=== PATIENT | female | born 1960 | race Caucasian/White ===

== ENCOUNTER 2021-04-06 08:56 | Outpatient (REF) | payer BC, SELFPAY ==
--- NOTE | ~2021-04-06 | US_ITS ---
EXAMINATION: US EXTRACRANIAL CAROTID DUPLEX, BILATERAL CLINICAL INFORMATION: This is a 60-year-old female with a history of hypertension. Hyperlipidemia. Carotid artery disease. COMPARISON: None TECHNIQUE: Real-time ultrasound and Doppler techniques (integrating B-mode 2-D vascular images, Doppler spectral analysis and color-flow Doppler imaging) were utilized to interrogate the extracranial carotid arteries, the vertebral arteries and proximal subclavian arteries bilaterally. The degree of stenosis is determined by criteria similar to NASCET. FINDINGS: Right Side: 1. There is minimal atherosclerotic plaque seen in the bifurcation/proximal ICA region. 2. The common carotid artery PSV proximally is 114 cm/s and distally 125 cm/s. 3. The proximal internal carotid artery velocities are 70 cm/s systolic and 25 cm/s diastolic. 4. The proximal external carotid artery PSV is 119 cm/s. 5. The vertebral artery shows antegrade flow. 6. The subclavian artery waveforms are normal. Left Side: 1. There is minimal atherosclerotic plaque seen in the bifurcation/proximal ICA region. 2. The common carotid artery PSV proximally is 125 cm/s and distally 108 cm/s. 3. The proximal internal carotid artery velocities are 94 cm/s systolic and 30 cm/s diastolic. 4. The proximal external carotid artery PSV is 119 cm/s. 5. The vertebral artery shows antegrade flow. 6. The subclavian artery waveforms are normal. US/US carotid duplex BI IMPRESSION: 1. RIGHT: Minimal, non-hemodynamically significant stenosis of the proximal right internal carotid artery corresponding to a 0-49% stenosis by velocity criteria. 2. LEFT: Minimal, non-hemodynamically significant stenosis of the proximal left internal carotid artery corresponding to a 0-49% stenosis by velocity criteria.
--- NOTE | ~2021-04-06 | US_ITS ---
EXAMINATION: ULTRASOUND RENAL DOPPLER. CLINICAL INFORMATION: Hypertension. COMPARISON: None TECHNIQUE: Routine grayscale imaging of kidneys followed by retroperitoneal renal Doppler exam was performed. FINDINGS: The right kidney is homogeneous in echo texture with normal cortical thickness. It measures 10.0 cm in length, 4.2 cm in AP and 4.8 cm in transverse dimension. No focal lesion or echogenic calculi seen. No hydronephrosis. The left kidney is homogeneous in echotexture with normal cortical thickness. It measures 10.5 x 5.6 x 5.4 cm. There is no focal lesion or echogenic calculi. There is no hydronephrosis. On renal Doppler: Right kidney: The renal artery velocity proximal segment measures 1 76 cm/second, mid segment measures 1 56 cm/second, distal segment measures 1 1 17 cm/second. Renal aortic ratio measures 1.72. Resistive index is less than 0.80. There is no suspicion for stenosis. The renal artery is patent. Left kidney: The left renal artery velocity proximal segment measures 10 4 cm/second, mid segment measures 98 cm/second, distal segment measures 10 2 cm/second. Renal aortic ratio measures 1.02. Resistive index is less than 0.80. There is no suspicion for stenosis. The renal arteries patent. The abdominal aorta velocity measures 10 2 cm/second. Incidental finding of multiple echogenic gallstones are noted. US/US renal doppler IMPRESSION: Normal renal ultrasound. Normal renal Doppler exam. No evidence of renal artery stenosis.
--- NOTE | ~2021-04-06 | US_ITS ---
EXAMINATION: ULTRASOUND RENAL DOPPLER. CLINICAL INFORMATION: Hypertension. COMPARISON: None TECHNIQUE: Routine grayscale imaging of kidneys followed by retroperitoneal renal Doppler exam was performed. FINDINGS: The right kidney is homogeneous in echo texture with normal cortical thickness. It measures 10.0 cm in length, 4.2 cm in AP and 4.8 cm in transverse dimension. No focal lesion or echogenic calculi seen. No hydronephrosis. The left kidney is homogeneous in echotexture with normal cortical thickness. It measures 10.5 x 5.6 x 5.4 cm. There is no focal lesion or echogenic calculi. There is no hydronephrosis. On renal Doppler: Right kidney: The renal artery velocity proximal segment measures 1 76 cm/second, mid segment measures 1 56 cm/second, distal segment measures 1 1 17 cm/second. Renal aortic ratio measures 1.72. Resistive index is less than 0.80. There is no suspicion for stenosis. The renal artery is patent. Left kidney: The left renal artery velocity proximal segment measures 10 4 cm/second, mid segment measures 98 cm/second, distal segment measures 10 2 cm/second. Renal aortic ratio measures 1.02. Resistive index is less than 0.80. There is no suspicion for stenosis. The renal arteries patent. The abdominal aorta velocity measures 10 2 cm/second. Incidental finding of multiple echogenic gallstones are noted. US/US renal BI IMPRESSION: Normal renal ultrasound. Normal renal Doppler exam. No evidence of renal artery stenosis.
== END 2021-04-06 08:57 | disposition home or self-care (01) ==
LOC: HO.US 08:56
PROVIDERS: PCP Internal Medicine; Visit Provider Internal Medicine
DX: I10 Essential (primary) hypertension (principal)
CPT/HCPCS: 76775; 93880; 93975

== ENCOUNTER 2021-11-15 10:19 | Outpatient (REF) | payer BC, SELFPAY ==
[2021-11-15 11:19] LABS: Influenza A PCR NEGATIVE (Negative); Influenza B PCR NEGATIVE (Negative); Resp Syncy Virus RNA Qual PCR NEGATIVE (Negative); SARS COV2 PCR INHOUSE NEGATIVE (Negative)
== END 2021-11-15 10:20 | disposition home or self-care (01) ==
LOC: HO.LNP 10:19
PROVIDERS: Visit Provider Internal Medicine
DX: J02.9 Acute pharyngitis, unspecified (principal); R51.9 Headache, unspecified; Z20.822 Contact with and (suspected) exposure to COVID-19
CPT/HCPCS: 0241U

== ENCOUNTER 2022-08-31 08:02 | Outpatient (REF) | payer BC, SELFPAY ==
[2022-08-31 08:23] LABS: MANUAL DIFF FLAG NO
[2022-08-31 08:33] LABS: Basophils Percent Auto 0.4 % (0-2); Eosinophils Absolute Auto 0.2 X10*3/uL (0.0-0.4); Eosinophils Percent Auto 1.7 % (0-4); Hematocrit 43.3 % (37.0-47.0); Hemoglobin 14.7 g/dl (12.0-16.0); Imm Gran Abs Auto 0.04 X10*3/uL (0.00-0.03); Imm Gran Pct Auto 0.4 % (0.0-0.4); Lymphocytes Absolute Auto 1.3 X10*3/uL (1.2-4.9); Lymphocytes Percent Auto 12.8 % (20-40); Mean Corpuscular HGB Conc 33.9 g/dl (31.0-35.0); Mean Corpuscular Hemoglobin 32.3 pg (27.0-33.0); Mean Corpuscular Volume 95.2 fL (80.0-98.0); Mean Platelet Volume 9.3 fL (9.4-12.3); Monocytes Absolute Auto 0.9 X10*3/uL (0.1-1.2); Monocytes Percent Auto 8.7 % (2-11); Neutrophils Absolute Auto 7.6 x10*3/uL (2.0-8.3); Platelet Count 300 X10*3/uL (160-400); Red Blood Count 4.55 X10*6/uL (4.20-5.50); Red Cell Distribution Width 11.9 % (11.0-16.0)
[2022-08-31 08:58] LABS: Alanine Aminotransferase 21 U/L (0-31); Albumin Level 4.7 g/dL (3.5-5.0); Alkaline Phosphatase 81 U/L (39-117); Anion Gap 16 (12-20); Aspartate Amino Transferase 20 U/L (5-31); Bilirubin Total 0.9 mg/dL (0.0-1.0); Blood Urea Nitrogen 23 mg/dL (9-16); Calcium 9.9 mg/dL (8.4-10.2); Carbon Dioxide 27 mmol/L (22-29); Chloride 101 mmol/L (96-108); Cholesterol 319 mg/dL; Estimated Glomerular Filt Rate > 60; Glucose Fasting 105 mg/dL (60-99); HDL Cholesterol 51 mg/dL; LDL Cholesterol Calculated 205 mg/dl; Potassium 4.4 mmol/L (3.3-5.1); Sodium 140 mmol/L (135-145); Total Protein 7.3 g/dL (6.5-8.0); Triglycerides 319 mg/dL
== END 2022-08-31 08:03 | disposition home or self-care (01) ==
LOC: HO.LAB 08:02
PROVIDERS: PCP Internal Medicine; Visit Provider Internal Medicine
DX: E78.00 Pure hypercholesterolemia, unspecified (principal); I10 Essential (primary) hypertension
CPT/HCPCS: 36415; 80053; 80061; 85025

== ENCOUNTER 2022-10-24 09:26 | Day surgery (SDC) | payer BC, SELFPAY ==
--- NOTE | 2022-10-23 12:16 | HO.ANESPROP2 ---
Documented by User: Marguerite Avila NP 10/23/22 12:17 HPI - Anesthesia Eval Consult details Narrative: 62yo F for Colonoscopy Subglottic stenosis requiring tracheal steroid injections Q6 weeks. Awaiting fax from [facility] for further review. FOR[facility]LY [facility] Past Medical History Medical History Basal cell carcinoma Cancer of left breast Difficulty breathing Gallstones HTN (hypertension) Injury of trachea Subglottic stenosis Uterine prolapse Vocal cord dysfunction Surgical History Surgical History H/O colonoscopy S/P lumpectomy, left breast Social History Social History Patient Tobacco Use Status: Never used Tobacco Use of substances other than those prescribed or required for medical reasons: No Are you DNR?: No Advance Directives: No Advance Directives Information Provided: Yes Meds Allergies Allergy/AdvReac Type Severity Reaction Status Date / Time No Known Allergies Allergy Mild NOT Unverified 08/11/20 15:38 [No Known Allergies*] APPLICABLE Home Medications Medication Instructions Recorded Confirmed Last Taken Type Vitamin D3 1,500 mg PO DAILY 10/23/22 10/24/22 Unknown History famotidine 20 mg tablet 1 tab PO BID 10/23/22 10/23/22 Unknown History letrozole 2.5 mg tablet 1 tab PO DAILY 10/23/22 10/23/22 Unknown History losartan 50 mg tablet 1 tab PO BID 10/23/22 10/23/22 Unknown History pravastatin 20 mg tablet 1 tab PO DAILY 10/23/22 10/23/22 Unknown History turmeric 1,500 mg DAILY 10/23/22 10/24/22 Unknown History Exam Exam Date and Time: October 23, 2022 1216 Pertinent Lab Results Pertinent Lab Results: Laboratory Tests 08/31/22 08/31/22 08:22 08:22 WBC 10.0 Hgb 14.7 Hct 43.3 Plt Count 300 Sodium 140 Potassium 4.4 Chloride 101 Carbon Dioxide 27 BUN 23 H Creatinine 0.70 Assessment and Plan Assessment Anesthesia Assessment: Chart Reviewed Documented by User: Miller Cormier MD 10/24/22 16:06 HPI - Anesthesia Eval Consult details Narrative: 62yo F for Colonoscopy Subglottic stenosis requiring tracheal steroid injections Q6 weeks. . [facility] Past Medical History Medical History Basal cell carcinoma Cancer of left breast Difficulty breathing Gallstones HTN (hypertension) Injury of trachea Subglottic stenosis Uterine prolapse Vocal cord dysfunction Functional capacity: independent ambulation Family History Family history of problems with anesthesia: No Surgical History Surgical History H/O colonoscopy S/P lumpectomy, left breast History of Problems with Anesthesia: No Social History Social History Patient Tobacco Use Status: Never used Tobacco Use of substances other than those prescribed or required for medical reasons: No Are you DNR?: No Advance Directives: No Advance Directives Information Provided: Yes Meds Allergies Allergy/AdvReac Type Severity Reaction Status Date / Time No Known Allergies Allergy Mild NOT Unverified 08/11/20 15:38 [No Known Allergies*] APPLICABLE Home Medications Medication Instructions Recorded Confirmed Last Taken Type Vitamin D3 1,500 mg PO DAILY 10/23/22 10/24/22 Unknown History famotidine 20 mg tablet 1 tab PO BID 10/23/22 10/23/22 Unknown History letrozole 2.5 mg tablet 1 tab PO DAILY 10/23/22 10/23/22 Unknown History losartan 50 mg tablet 1 tab PO BID 10/23/22 10/23/22 Unknown History pravastatin 20 mg tablet 1 tab PO DAILY 10/23/22 10/23/22 Unknown History turmeric 1,500 mg DAILY 10/23/22 10/24/22 Unknown History Exam Airway Mallampati Class: II TM Dist: >3cm Neck ROM: Full Loose/Missing/Broken Teeth: Yes (Fillings) Heart: S1,S2 Lungs: b/l breath sounds Assessment and Plan Assessment Anesthesia Assessment: Anesthesia Plan Discussed Final Anesthetic Review Family History of Problems with Anesthesia: No History of Problems with Anesthesia: No NPO: Yes ASA Class: III Final Preanesthetic Review: Meds/Allgs Chart Reviewed, Consent Obtained/Reviewed and Anes Risks/Benef Reviewed Patient Risk: Intermediate Procedure Risk: Intermediate Anesthetic Plan Anesthetic Plan: MAC: Disposition: Standard PACU
[2022-10-24 09:39] VITALS: BP 148/70; PULSE 87; RESP 18; TEMP 36.6; O2SAT 98; BMI 22.4
[2022-10-24] MEDS: Lactated Ringers 1,000 ML 100 ML IVCONT (10:11)
[2022-10-24 11:40] VITALS: BP 145/77; PULSE 80; RESP 16; TEMP 36.3; O2SAT 96
--- NOTE | 2022-10-24 11:45 | P.BOP_ITS ---
Brief Operative Note Date of Service: 10/24/22 Pre-op diagnosis: Screening Post-op diagnosis: other (Colon polyp) Procedure: Colonoscopy to cecum with bx/removal of polyp Surgeon: Mynor Alcaraz Anesthesia: MAC Was an Electrical Wiring Lineman used for this Procedure?: No Estimated blood loss (mL): 2.0 Pathology: other (A. Transverse colon polyp) Condition: stable Disposition: PACU
[2022-10-24 11:55] VITALS: BP 151/64; PULSE 75; RESP 16; TEMP 36.2; O2SAT 98
[2022-10-24 12:10] VITALS: BP 142/53; PULSE 69; RESP 16; TEMP 36.1; O2SAT 96
--- NOTE | 2022-10-25 00:13 | OP_ITS ---
SURGEON: Mynor Alcaraz MD INDICATIONS: The patient presents for evaluation of colorectal cancer screening and family history of colon cancer. Full consent was obtained from her for this, including risks of bleeding and perforation. PREOPERATIVE DIAGNOSIS: POSTOPERATIVE DIAGNOSIS: PROCEDURE PERFORMED: Colonoscopy to cecum with biopsy and removal of polyp. ESTIMATED BLOOD LOSS: COMPLICATIONS: ANESTHESIA: Monitored anesthesia care. ASSISTANTS: SPECIMENS: PREOPERATIVE DIAGNOSES: Colorectal cancer screening and family history of colon Cancer. POSTOPERATIVE DIAGNOSES: Colorectal cancer screening and family history of colon Cancer, small colon polyp, diverticulosis and internal hemorrhoids. DESCRIPTION OF PROCEDURE: The patient was placed in the left lateral decubitus position. The digital rectal exam revealed no abnormalities. The Olympus video pediatric colonoscope was entered into the rectum and advanced easily to the cecum. Once in the cecum, I did identify normal-appearing cecal pouch with appendiceal orifice and a normal-appearing ileocecal valve. The entire cecum and ileocecal valve appeared normal. The scope was slowly withdrawn assessing all mucosal surfaces carefully. Preparation was excellent. In the transverse colon was a flat approximately 3 or 4 mm polyp, which was biopsied and completely removed with cold biopsy forceps. I did not visualize any other polyps, colitis, nor angiodysplasia. There was a moderate amount of sigmoid diverticulosis. In the rectum, the scope was retroflexed visualizing internal hemorrhoids, but no other pathology. The rectal mucosa appeared normal. The scope was straightened and withdrawn from the patient. She tolerated the procedure well and was returned to the recovery area in stable condition. IMPRESSION: 1. Small colon polyp, status post biopsy and removal. 2. Diverticulosis. 3. Internal hemorrhoids. PLAN: The results of the pathology will be checked. Even if this is only hyperplastic, I would recommend a followup colonoscopy in 5 years due to her family history of colon cancer. She will otherwise see me on a p.r.n. basis. MD SANDY Rivero/CRIS / [id number]
== END 2022-10-24 12:58 | disposition home or self-care (01) ==
PROVIDERS: PCP Internal Medicine; Visit Provider Internal Medicine
PROC: 0DJD8ZZ Inspection of Lower Intestinal Tract, Via Natural or Artificial Opening Endoscopic (ICD-10-PCS; CPT 45378; principal; 2022-10-24 10:30)
DX: Z12.11 Encounter for screening for malignant neoplasm of colon (principal); Z80.0 Family history of malignant neoplasm of digestive organs; D12.3 Benign neoplasm of transverse colon; K57.30 Diverticulosis of large intestine without perforation or abscess without bleeding; K64.8 Other hemorrhoids; K80.20 Calculus of gallbladder without cholecystitis without obstruction; J38.6 Stenosis of larynx; I10 Essential (primary) hypertension; C50.912 Malignant neoplasm of unspecified site of left female breast; Z79.811 Long term (current) use of aromatase inhibitors; Z79.899 Other long term (current) drug therapy; Z85.828 Personal history of other malignant neoplasm of skin
CPT/HCPCS: 45380; 88305

== ENCOUNTER 2023-01-10 10:43 | Outpatient (REF) | payer BC, SELFPAY ==
[2023-01-10 13:21] LABS: MANUAL DIFF FLAG NO
[2023-01-10 13:36] LABS: Basophils Percent Auto 0.4 % (0-2); Eosinophils Absolute Auto 0.1 X10*3/uL (0.0-0.4); Eosinophils Percent Auto 1.5 % (0-4); Hematocrit 44.3 % (37.0-47.0); Hemoglobin 14.7 g/dl (12.0-16.0); Imm Gran Abs Auto 0.02 X10*3/uL (0.00-0.03); Imm Gran Pct Auto 0.3 % (0.0-0.4); Lymphocytes Absolute Auto 1.2 X10*3/uL (1.2-4.9); Lymphocytes Percent Auto 18.4 % (20-40); Mean Corpuscular HGB Conc 33.2 g/dl (31.0-35.0); Mean Corpuscular Hemoglobin 32.3 pg (27.0-33.0); Mean Corpuscular Volume 97.4 fL (80.0-98.0); Mean Platelet Volume 10.1 fL (9.4-12.3); Monocytes Absolute Auto 0.5 X10*3/uL (0.1-1.2); Monocytes Percent Auto 7.5 % (2-11); Neutrophils Absolute Auto 4.8 x10*3/uL (2.0-8.3); Neutrophils Percent Auto 71.9 % (45-73); Platelet Count 285 X10*3/uL (160-400); Red Blood Count 4.55 X10*6/uL (4.20-5.50); White Blood Count 6.7 X10*3/uL (4.8-10.8)
[2023-01-10 13:47] LABS: Alanine Aminotransferase 23 U/L (0-31); Albumin Level 4.5 g/dL (3.5-5.0); Alkaline Phosphatase 75 U/L (39-117); Anion Gap 15 (12-20); Aspartate Amino Transferase 21 U/L (5-31); Blood Urea Nitrogen 17 mg/dL (9-16); Calcium 9.5 mg/dL (8.4-10.2); Carbon Dioxide 27 mmol/L (22-29); Chloride 102 mmol/L (96-108); Cholesterol 265 mg/dL; Estimated Glomerular Filt Rate > 60; Glucose Random 103 mg/dL (60-115); HDL Cholesterol 51 mg/dL; LDL Cholesterol Calculated 160 mg/dl; Potassium 4.3 mmol/L (3.3-5.1); Sodium 140 mmol/L (135-145); Total Protein 6.8 g/dL (6.5-8.0); Triglycerides 274 mg/dL
== END 2023-01-10 10:44 | disposition home or self-care (01) ==
LOC: HO.10HDL 10:43
PROVIDERS: Visit Provider Internal Medicine
DX: E78.00 Pure hypercholesterolemia, unspecified (principal); I10 Essential (primary) hypertension
CPT/HCPCS: 36415; 80053; 80061; 85025

== ENCOUNTER 2023-03-18 13:09 | Outpatient (REF) | payer BC, SELFPAY ==
--- NOTE | ~2023-03-18 | CT_ITS ---
EXAMINATION: CT ABDOMEN AND PELVIS WITHOUT AND WITH CONTRAST CLINICAL INFORMATION: Gross hematuria. Hypertension. COMPARISON: None available. TECHNIQUE: Noncontrast CT of the abdomen and pelvis is performed followed by split bolus contrast-enhanced images using 85 mL Omnipaque 350 contrast.? Postcontrast imaging is performed during the combined nephrogram and excretion phase. Sagittal and coronal reformatted images were obtained on the technologist's workstation for both the precontrast and postcontrast phases. This CT examination was performed using dose optimization techniques as appropriate, variously including the following: *Automated exposure control *Adjustment of mA and/or kV according to patient size (this includes techniques or standardized protocols for targeted exams where dose is matched to indication/reason for exam; i.e. extremities or head) *Use of iterative reconstruction technique DLP: 570 mGy-cm. FINDINGS: LUNG BASES: The lung bases are clear. The heart size is normal. LIVER, GALLBLADDER, AND BILIARY TREE: The liver is normal in size, shape, and attenuation. No focal hepatic lesion or biliary ductal dilatation is present. The gallbladder is unremarkable with no evidence of radiopaque gallstones, gallbladder wall thickening, or obvious pericholecystic inflammatory changes. PANCREAS: Unremarkable. SPLEEN: Unremarkable. ADRENAL GLANDS: Unremarkable. KIDNEYS AND URETERS: There are no radiopaque renal calculi or hydronephrosis. There is a tumor radiopaque calculi in the right distal ureter suspected image 62/3. Postcontrast, there are bilateral symmetrical nephrograms with normal cortical thickness. No enhancing renal mass, cyst seen. There is good opacification of the bilateral kidney pelvises and ureters without intraluminal filling defect or obstruction. Right kidney measures 10.3 cm in length and left kidney measures 8.7 cm in length. There is a punctate radiopaque calculi or phleboliths in the right distal ureteral/pelvis No additional radiopaque ureteral calculi seen. No perinephric stranding seen. BLADDER: The bladder is opacified with excreted urinary contrast and appears unremarkable. GASTROINTESTINAL TRACT: There is scattered stool and gas seen throughout the colon without distention. The small bowel loops are normal caliber. Appendix is not visualized certainty. No free air or free fluid seen. ABDOMINAL WALL: No significant hernia is appreciated. LYMPH NODES: Normal. VASCULAR: There is arthroscopic calcification of abdominal aorta without aneurysmal dilatation. No lytic or sclerotic process seen. PELVIC VISCERA: No pelvic mass of free fluid. OSSEUS STRUCTURES: Unremarkable. CT/CT urogram IMPRESSION: 1. No radiopaque urolith or hydroureteronephrosis seen. There is suspicious punctate radiopaque calculi/phlebolith in the right distal ureter/pelvis. No hydroureter. 2. Mild constipation. 3. No aggressive lytic or sclerotic process seen.
[2023-03-18] MEDS: iohexoL 350 MG/ML 100 ML INFUS..BTL IV (14:46)
[2023-03-18 15:08] LABS: Appearance Urine Clear; Color Urine Yellow; Glucose Urine UA Negative (Negative); Leukocyte Esterase Urine Negative (Negative); Nitrite Urine Negative (Negative); PH 5.5 (5.0-9.0); Specific Gravity - Urine >= 1.030 (1.005-1.025); Urine Blood Negative (Negative); Urine Ketones Negative (Negative); Urine Protein Negative (Neg-Trace)
[2023-03-18 15:17] LABS: Bacteria Urine None Seen (None Seen); Hyaline Casts Urine 0-2 /LPF (0-2); RBC Urine 0-2 /HPF (0-2); Squamous Epithelial Cell Urine 0-2 /HPF (0-2); WBC Urine 0-5 /HPF (0-5)
[2023-03-20 16:28] LABS: Complement C3 191 mg/dL (83-193)
[2023-03-22 12:53] LABS: Prot Elec - Albumin 4.5 g/dL (3.8-4.8); Prot Elec - Alpha2 0.6 g/dL (0.5-0.9); Prot Elec - Beta 1 0.4 g/dL (0.4-0.6); Prot Elec - Beta 2 0.3 g/dL (0.2-0.5); Prot Elec - Gamma 0.7 g/dL (0.8-1.7); Prot Elec - Total Protein 7.3 g/dL (6.1-8.1)
== END 2023-03-18 13:10 | disposition home or self-care (01) ==
LOC: HO.CT 13:09
PROVIDERS: PCP Internal Medicine; Visit Provider Internal Medicine Nephrology
DX: I10 Essential (primary) hypertension (principal); R31.0 Gross hematuria
CPT/HCPCS: 36415; 74178; 81001; 84165; 86160; 87086; Q9967

== ENCOUNTER 2023-08-07 10:57 | Outpatient (REF) | payer OTHER, SELFPAY ==
[2023-08-07 13:18] LABS: MANUAL DIFF FLAG NO
[2023-08-07 13:23] LABS: Basophils Absolute Auto 0.1 X10*3/uL (0.0-0.2); Basophils Percent Auto 0.7 % (0-2); Eosinophils Absolute Auto 0.1 X10*3/uL (0.0-0.4); Eosinophils Percent Auto 1.6 % (0-4); Hematocrit 44.5 % (37.0-47.0); Hemoglobin 14.7 g/dl (12.0-16.0); Imm Gran Abs Auto 0.04 X10*3/uL (0.00-0.03); Imm Gran Pct Auto 0.5 % (0.0-0.4); Lymphocytes Absolute Auto 1.5 X10*3/uL (1.2-4.9); Lymphocytes Percent Auto 20.1 % (20-40); Mean Corpuscular Volume 96.9 fL (80.0-98.0); Mean Platelet Volume 10.2 fL (9.4-12.3); Monocytes Absolute Auto 0.6 X10*3/uL (0.1-1.2); Monocytes Percent Auto 7.3 % (2-11); Neutrophils Absolute Auto 5.2 x10*3/uL (2.0-8.3); Neutrophils Percent Auto 69.8 % (45-73); Platelet Count 300 X10*3/uL (160-400); Red Blood Count 4.59 X10*6/uL (4.20-5.50); Red Cell Distribution Width 11.6 % (11.0-16.0); White Blood Count 7.5 X10*3/uL (4.8-10.8)
[2023-08-07 13:46] LABS: Alanine Aminotransferase 20 U/L (0-31); Albumin Level 4.7 g/dL (3.5-5.0); Alkaline Phosphatase 78 U/L (39-117); Anion Gap 14 (12-20); Aspartate Amino Transferase 21 U/L (5-31); Bilirubin Total 0.4 mg/dL (0.0-1.0); Blood Urea Nitrogen 21 mg/dL (9-16); Calcium 10.3 mg/dL (8.4-10.2); Carbon Dioxide 27 mmol/L (22-29); Chloride 103 mmol/L (96-108); Cholesterol 250 mg/dL (<200); Estimated Glomerular Filt Rate > 60; Glucose Random 95 mg/dL (60-115); HDL Cholesterol 51 mg/dL (>40); LDL Cholesterol Calculated 143 mg/dL (<100); Potassium 4.3 mmol/L (3.3-5.1); Sodium 140 mmol/L (135-145); Total Protein 7.7 g/dL (6.5-8.0); Triglycerides 281 mg/dL (<150)
== END 2023-08-07 10:58 | disposition home or self-care (01) ==
LOC: HO.10HDL 10:57
PROVIDERS: Visit Provider Internal Medicine
DX: Z00.00 Encounter for general adult medical examination without abnormal findings (principal); I10 Essential (primary) hypertension; E78.00 Pure hypercholesterolemia, unspecified
CPT/HCPCS: 36415; 80053; 80061; 85025

== ENCOUNTER 2024-02-26 08:20 | Outpatient (REF) | payer OTHER, SELFPAY ==
[2024-02-26 10:36] LABS: MANUAL DIFF FLAG NO
[2024-02-26 10:42] LABS: Basophils Percent Auto 0.6 % (0-2); Eosinophils Absolute Auto 0.1 X10*3/uL (0.0-0.4); Eosinophils Percent Auto 1.2 % (0-4); Hematocrit 42.9 % (37.0-47.0); Hemoglobin 14.6 g/dl (12.0-16.0); Imm Gran Abs Auto 0.02 X10*3/uL (0.00-0.03); Imm Gran Pct Auto 0.3 % (0.0-0.4); Lymphocytes Absolute Auto 1.4 X10*3/uL (1.2-4.9); Mean Corpuscular Hemoglobin 32.7 pg (27.0-33.0); Mean Platelet Volume 9.7 fL (9.4-12.3); Monocytes Absolute Auto 0.5 X10*3/uL (0.1-1.2); Monocytes Percent Auto 6.9 % (2-11); Neutrophils Absolute Auto 4.7 x10*3/uL (2.0-8.3); Platelet Count 309 X10*3/uL (160-400); Red Blood Count 4.47 X10*6/uL (4.20-5.50); Red Cell Distribution Width 11.9 % (11.0-16.0); White Blood Count 6.7 X10*3/uL (4.8-10.8)
[2024-02-26 11:42] LABS: Alanine Aminotransferase 24 U/L (0-31); Albumin Level 4.2 g/dL (3.5-5.0); Alkaline Phosphatase 83 U/L (39-117); Anion Gap 10 (12-20); Aspartate Amino Transferase 20 U/L (5-31); Bilirubin Total 0.5 mg/dL (0.0-1.0); Blood Urea Nitrogen 18 mg/dL (9-16); Calcium 9.7 mg/dL (8.4-10.2); Carbon Dioxide 29 mmol/L (22-29); Chloride 105 mmol/L (96-108); Cholesterol 219 mg/dL (<200); Estimated Glomerular Filt Rate > 60; Glucose Fasting 113 mg/dL (60-99); HDL Cholesterol 46 mg/dL (>40); LDL Cholesterol Calculated 122 mg/dL (<100); Potassium 4.3 mmol/L (3.3-5.1); Sodium 140 mmol/L (135-145); Triglycerides 256 mg/dL (<150); Vitamin D 25-OH Total 63.5 ng/mL (>30)
== END 2024-02-26 08:21 | disposition home or self-care (01) ==
LOC: HO.10HDL 08:20
PROVIDERS: Visit Provider Internal Medicine
DX: I10 Essential (primary) hypertension (principal); E78.5 Hyperlipidemia, unspecified
CPT/HCPCS: 36415; 80053; 80061; 82306; 85025

== ENCOUNTER 2024-03-20 07:56 | Outpatient (REF) | payer OTHER, SELFPAY ==
[2024-03-20 10:57] LABS: MANUAL DIFF FLAG NO
[2024-03-20 11:02] LABS: Basophils Percent Auto 0.5 % (0-2); Eosinophils Absolute Auto 0.1 X10*3/uL (0.0-0.4); Eosinophils Percent Auto 1.4 % (0-4); Hemoglobin 14.7 g/dl (12.0-16.0); Imm Gran Abs Auto 0.02 X10*3/uL (0.00-0.03); Imm Gran Pct Auto 0.2 % (0.0-0.4); Lymphocytes Absolute Auto 1.5 X10*3/uL (1.2-4.9); Lymphocytes Percent Auto 17.6 % (20-40); Mean Corpuscular HGB Conc 34.2 g/dl (31.0-35.0); Mean Corpuscular Hemoglobin 32.2 pg (27.0-33.0); Mean Corpuscular Volume 94.1 fL (80.0-98.0); Mean Platelet Volume 9.7 fL (9.4-12.3); Monocytes Absolute Auto 0.5 X10*3/uL (0.1-1.2); Monocytes Percent Auto 6.1 % (2-11); Neutrophils Absolute Auto 6.4 x10*3/uL (2.0-8.3); Neutrophils Percent Auto 74.2 % (45-73); Platelet Count 311 X10*3/uL (160-400); Red Blood Count 4.57 X10*6/uL (4.20-5.50); Red Cell Distribution Width 11.9 % (11.0-16.0); White Blood Count 8.6 X10*3/uL (4.8-10.8)
[2024-03-20 11:21] LABS: Alanine Aminotransferase 30 U/L (0-31); Albumin Level 4.3 g/dL (3.5-5.0); Alkaline Phosphatase 90 U/L (39-117); Anion Gap 9 (12-20); Aspartate Amino Transferase 26 U/L (5-31); Bilirubin Direct 0.1 mg/dL (0.0-0.5); Bilirubin Total 0.4 mg/dL (0.0-1.0); Blood Urea Nitrogen 18 mg/dL (9-16); C Reactive Protein 0.52 mg/dL (< or = 0.50); Calcium 9.5 mg/dL (8.4-10.2); Carbon Dioxide 29 mmol/L (22-29); Chloride 107 mmol/L (96-108); Estimated Glomerular Filt Rate > 60; Glucose Random 110 mg/dL (60-115); Potassium 3.8 mmol/L (3.3-5.1); Sodium 141 mmol/L (135-145); Total Protein 7.1 g/dL (6.5-8.0)
[2024-03-20 11:42] LABS: Erythrocyte Sedimentation Rate 5 MM/HR (0-20)
== END 2024-03-20 07:57 | disposition home or self-care (01) ==
LOC: HO.10HDL 07:56
PROVIDERS: Visit Provider Internal Medicine
DX: K62.5 Hemorrhage of anus and rectum (principal)
CPT/HCPCS: 36415; 80048; 80076; 85025; 85652; 86140

== ENCOUNTER 2024-10-05 08:53 | Outpatient (REF) | payer OTHER, SELFPAY ==
[2024-10-05 10:46] LABS: MANUAL DIFF FLAG NO
[2024-10-05 10:53] LABS: Basophils Percent Auto 0.6 % (0-2); Eosinophils Absolute Auto 0.1 X10*3/uL (0.0-0.4); Eosinophils Percent Auto 1.5 % (0-4); Hematocrit 43.5 % (37.0-47.0); Hemoglobin 14.8 g/dl (12.0-16.0); Imm Gran Abs Auto 0.03 X10*3/uL (0.00-0.03); Imm Gran Pct Auto 0.4 % (0.0-0.4); Lymphocytes Absolute Auto 1.2 X10*3/uL (1.2-4.9); Mean Corpuscular Hemoglobin 32.6 pg (27.0-33.0); Mean Corpuscular Volume 95.8 fL (80.0-98.0); Mean Platelet Volume 9.5 fL (9.4-12.3); Monocytes Absolute Auto 0.4 X10*3/uL (0.1-1.2); Monocytes Percent Auto 6.5 % (2-11); Platelet Count 279 X10*3/uL (160-400); Red Blood Count 4.54 X10*6/uL (4.20-5.50); Red Cell Distribution Width 12.3 % (11.0-16.0); White Blood Count 6.8 X10*3/uL (4.8-10.8)
[2024-10-05 11:13] LABS: Alanine Aminotransferase 24 U/L (0-31); Albumin Level 4.3 g/dL (3.5-5.0); Alkaline Phosphatase 76 U/L (39-117); Anion Gap 10 (12-20); Aspartate Amino Transferase 21 U/L (5-31); Bilirubin Total 0.4 mg/dL (0.0-1.0); Blood Urea Nitrogen 29 mg/dL (9-16); Calcium 9.7 mg/dL (8.4-10.2); Carbon Dioxide 27 mmol/L (22-29); Chloride 105 mmol/L (96-108); Cholesterol 244 mg/dL (<200); Estimated Glomerular Filt Rate > 60; Glucose Fasting 108 mg/dL (60-99); HDL Cholesterol 53 mg/dL (>40); LDL Cholesterol Calculated 125 mg/dL (<100); Sodium 138 mmol/L (135-145); Total Protein 7.1 g/dL (6.5-8.0); Triglycerides 330 mg/dL (<150)
== END 2024-10-05 08:54 | disposition home or self-care (01) ==
LOC: HO.10HDL 08:53
PROVIDERS: Visit Provider Internal Medicine
DX: I10 Essential (primary) hypertension (principal); E78.00 Pure hypercholesterolemia, unspecified
CPT/HCPCS: 36415; 80053; 80061; 82306; 85025

== ENCOUNTER 2025-01-21 10:12 | Outpatient (AMB) | payer OTHER, SELFPAY ==
--- NOTE | 2025-01-21 10:14 | A.OFFVIS_ITS ---
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 Patient herself does not have any known cardiac issues. No history of any coronary disease or myocardial infarction or cardiomyopathy or in fact any other cardiac concerns. She has had hypertension since her 40s. She is on medication for the same but still not well controlled. She also has hypertension on statins. Apparently, she has had issues with some statins like atorvastatin where she had memory issues but currently taking pravastatin. However, still has high lipids. Within limits of her activity, she does not have any cardiac complaints like angina. The extremely active with no limitations. History of breast cancer and she has had lumpectomy, radiation. 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 That was causing her some shortness of breath but now it is resolved. 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 Basal cell carcinoma Gallstones Uterine prolapse Subglottic stenosis Vocal cord dysfunction HTN (hypertension) Surgical History S/P lumpectomy, left breast H/O colonoscopy Family History (Updated 01/21/25 @ 10:22 by Marika William CMA) Mother CHF (congestive heart failure) HTN (hypertension) Father History of cardiac cath HTN (hypertension) Hypercholesteremia Social History (Updated 01/21/25 @ 10:23 by Marika William CMA) Alcohol intake: current Alcohol intake frequency: holidays/special occasions only Patient Tobacco Use Status: Never used Tobacco Review of Systems Const Denies chills, Denies daytime sleepiness, Denies fatigue, Denies fever(s), Denies poor appetite, Denies snoring, Denies stops breathing during sleep, Denies weakness, Denies weight gain and Denies weight loss Eyes Denies loss of vision ENT Denies dizziness and Denies hearing loss Card Denies chest pain, Denies irregular heart rhythm, Denies claudication, Denies leg edema, Denies lightheadedness, Denies palpitations, Denies dyspnea on exertion and Denies orthopnea Resp Denies cough, Denies excessive phlegm production, Denies dyspnea on exertion, Denies snoring and Denies wheezing GI Denies abdominal pain, Denies hematochezia, Denies change in bowel habits, Denies nausea and Denies vomiting Denies urinary frequency and Denies dysuria Musc Denies arthralgias, Denies muscle weakness, Denies numbness and Denies other Skin/Breast Denies nail changes and Denies rash Neuro Denies Abnormal speech present, Denies dizziness, Denies loss of vision, Denies memory loss, Denies numbness and Denies weakness Psych Denies depression and Denies memory loss Endo Denies fatigue and Denies palpitations Chan/Lymph Denies easy bruising Aller/Immun Denies wheezing Physical Exam Vital Signs: Last Vital Signs Pulse 72 01/21/25 10:15 BP 172/88 H 01/21/25 10:15 BMI result Body Mass Index 23.8 Const General: comfortable and no acute distress Orientation/consciousness: patient oriented x3 HEENT Other: Unremarkable Head: Yes normal to inspection Neck Neck: Yes normal visual inspection Chest Chest palpation & inspection: normal inspection of the chest Resp Auscultation: clear to auscultation bilaterally Cardio Palpation: normal PMI Heart sounds: S1 normal heart sound present, S2 normal heart sound present, no gallops, no murmurs and no rubs GI Palpation (GI): Soft to palpation Back/Spine/Pelvis Other: unremarkable Skin General skin exam: no rashes or lesions noted Neuro General: patient oriented x3 Speech: No Abnormal speech present Extrem General: Yes normal to inspection Psych Mental Status: mental status grossly normal Office Procedures EKG Details: EKG with underlying sinus rhythm at 72/Min; no significant ST-T changes; [place] [id number], Complete Assessment & Plan Assessment & Plan (1) Atherosclerotic cardiovascular disease: Code(s): I25.10 - Atherosclerotic heart disease of [place] coronary artery without angina pectoris Category: Medical (2) HTN (hypertension): Code(s): I10 - Essential (primary) hypertension Category: Medical (3) Mixed hyperlipidemia: Code(s): E78.2 - Mixed hyperlipidemia Category: Medical Plan Calcium scoring CT scan-total calcium score 17. LAD 11; RCA 6. Findings discussed with patient. She mainly needs risk factor modification. Blood pressure is not well controlled. I checked it myself and still high. We can add amlodipine to arranging. She can let us know the readings through patient portal and we discussed that today. She admits to eating excessive salt and needs to avoid that. Again discussed. Check echocardiogram to assess cardiac function/left ventricular hypertrophy/ diastolic dysfunction. Lipids are high with triglycerides of 330 and LDL of 125. Apparently intolerant of some statins like atorvastatin. Cause for memory issues. Try Crestor. Stop pravastatin. Recheck lipids in a couple of months. Follow-up in 3 months. In the interim, call with any concerns. Orders: Orders CA echo transthoracic complete Today I10 - Essential (primary) hypertension, I25.10 - Atherosclerotic heart disease of [place] coronary artery without angina pectoris Liver Panel 3 Months I25.10 - Atherosclerotic heart disease of [place] coronary artery without angina pectoris Lipid Panel 3 Months E78.5 - Hyperlipidemia, unspecified, I25.10 - Atherosclerotic heart disease of [place] coronary artery without angina pectoris Medications: New rosuvastatin (Crestor) 20 mg PO DAILY 90 tabs 1RF I25.10 - Atherosclerotic heart disease of [place] coronary artery without angina pectoris amlodipine 5 mg PO DAILY 90 tabs 1RF I10 - Essential (primary) hypertension Coding Level of Care Code New Pt Level 4 (83889) Diagnoses Atherosclerotic cardiovascular disease I25.10 HTN (hypertension) I10 Mixed hyperlipidemia E78.2 CPT Codes EKG - CPT: 45982-[id number], Complete ([id number])
[2025-01-21 10:15] VITALS: BP 172/88; PULSE 72; BMI 23.8
--- OUTSIDE RECORDS SUMMARY | 2025-01-21 11:49 | XMS_ITS | Clinical Summary ---
Author Organization [facility] Address [address] [place] [address] Phone Care Team Providers Care Nuclear Fuel Enrichment Technician Name Role Phone Sidney Carlton MD Primary Care Provider [phone] Allergies No known active allergies Medications biotin 1000 MCG tablet Take 1,000 mcg by mouth in the morning and 1,000 mcg at noon and 1,000 mcg in the evening. Active cholecalciferol (VITAMIN D-3) 25 MCG (1000 UT) tablet Take 2,000 Units by mouth in the morning. Active letrozole (FEMARA) 2.5 MG chemo tablet Take 2.5 mg by mouth in the morning. 10/07/2019 Active losartan (COZAAR) 50 MG tablet Take 50 mg by mouth in the morning and 50 mg in the evening. 10/20/2021 Active niacinamide 500 MG tablet Take 500 mg by mouth in the morning and 500 mg in the evening. 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 03/05/2023 Diverticulosis of sigmoid colon 03/05/2023 03/05/2023 Family history of cancer of colon 03/05/2023 03/05/2023 Herniated urinary bladder 03/05/2023 Herniation of rectum into vagina 03/05/2023 03/05/2023 Mixed urinary incontinence 03/05/2023 0 03/05/2023 Screening for malignant neoplasm of rectum 03/05/2023 03/05/2023 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 03/05/20 Tumor finding 03/05/2023 03/05/2023 Gastro-esophageal reflux dis ease without esophagitis 06/02/2020 03/05/2023 Edema of larynx 06/02/2020 03/05/2023 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 Bustamante 2014; on Xanax BID with some relief; stridor/wheezing/dry cough with deep breathing/prolonged talking/exercise; unchanged symptoms Immunizations Name Administration Dates Next Due Influenza, Quadrivalent, Preservative Free 09/06 Moderna SARS-COV-2 03/09/2021 Family History Medical History Relation Comments Diabetes Brother Hypertension Father Heart disease Mother Hypertension Mother Relation Status Comments Brother Father Alive Mother Social History Tobacco Use Types Packs/Day Years Used Date Smoking Tobacco: Never Smokeless Tobacco: Never Tobacco Cessation:Counseling Given: Not Answered Alcohol Use Standard Drinks/Week Comments Yes 0 (1 standard drink = 0.6 oz pur e alcohol) Comments Unknown Sex and Gender Information Value Date Recorded Sex Assigned at Not on file Legal Sex Female 3:42 PM EDT Gender Identity Not on file Sexual Orientation Not on file Last Filed Vital Signs Vital Sign Reading Time Taken Comments Blood Pressure 130/82 03/06/2023 11:07 AM EDT Pulse - - Temperature - - Respiratory Rate - - Oxygen Saturation - - Inhaled Oxygen Concentration - - Weight 61.5 kg (135 lb 9.6 oz) 03/06/2023 11:07 AM EDT Height - - Body Mass Index - - Plan of Treatment Health Maintenance Due Date Last Done Comments Breast Cancer Screening 1960 Pneumococcal Vaccine: 65+ Years (1 of 2 - PCV) 1964 Colorectal Cancer Screening: Annual FOBT 2007 Colorectal Cancer Screening: Sigmoidoscopy 2007 Influenza Vaccine (#1) 2024 , 09/02/2018 Colorectal Cancer Screening: Colonoscopy 10/24/2032 10/24/2022 Hepatitis B Vaccine Aged Out No longe r eligible based on patient's age to complete this topic Care Teams Nuclear Fuel Enrichment Technician Relationship Specialty Start Date End Date Sidney Carlton MD [id number] [place] PCP - General Internal Medicine 03/06/23
== END 2025-01-21 10:56 | disposition home or self-care (01) ==
PROVIDERS: PCP Internal Medicine; Visit Provider Internal Medicine
DX: I25.10 Atherosclerotic heart disease of native coronary artery without angina pectoris (principal); I10 Essential (primary) hypertension; E78.2 Mixed hyperlipidemia
CPT/HCPCS: 93010; 99204

== ENCOUNTER → 2025-01-21 10:12 | Outpatient (BNVA) | payer OTHER, SELFPAY | PROVIDERS: PCP Internal Medicine; Visit Provider Internal Medicine | DX: I25.10 Atherosclerotic heart disease of native coronary artery without angina pectoris (principal); I10 Essential (primary) hypertension; E78.2 Mixed hyperlipidemia | CPT/HCPCS: 93005 ==

== ENCOUNTER → 2025-02-05 08:56 | Outpatient (REF) | payer OTHER, SELFPAY ==
--- NOTE | 2025-02-05 09:08 | CA_ITS ---
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 Study Quality: Good ECG Rhythm: Sinus Conclusions: - The left ventricular systolic function is normal. The calculated ejection fraction is 64% by biplane method. - No obvious valvular pathology seen on this study. Findings Left Ventricle Normal left ventricular cavity size. There is mildly increased left ventricular wall thickness. The left ventricular systolic function is normal. The calculated ejection fraction is 64% by biplane method. There is no evidence of regional wall motion abnormalities. Diastolic function is normal for age. Right Ventricle Normal right ventricular cavity size and systolic function. Atria Both atria are normal in size. Aortic Valve There is a normal trileaflet aortic valve. There is no aortic valve stenosis. There is no aortic valve regurgitation. Mitral Valve There is mild mitral annular calcification. There is trace mitral valve regurgitation. There is no mitral valve stenosis. Pulmonic Valve The pulmonic valve is likely normal. Tricuspid Valve There is trace tricuspid valve regurgitation. There is no evidence of pulmonary hypertension. Great Vessels The asc aorta is normal in size. Venous The inferior vena cava is normal in size and collapses greater than 50% with inspiration. Pericardium/Pleural There is no evidence of pericardial effusion. Prior Study Comparison No prior study available for comparison. Recommendations, Care & Conclusions No obvious valvular pathology seen on this study. Measurements 2D Linear Measurements IVSd: 1.24 0.6-0.9/0.6-1.0 cm LVIDd: 3.62 3.9-5.3/4.2-5.9 cm LVIDd Index: 2.18 2.4-3.2/2.2-3.1 cm/m2 LVIDs: 2.26 2.0-3.6 cm LVPWd: 1.24 0.7-1.1 cm Ao Root: 2.90 2.1-3.5 cm LA Diam: 3.80 2.7-3.8/3.0-4.0 cm LAIDs Index: 2.29 1.5-2.3 cm/m2 LV Mass: 186.72 67-162/88-224 g LV Mass Index: 112.48 43-95/49-115 g/m2 LVOT Diam: 2.00 3.0+(-)1.3 cm 2D Systolic Function EF 4C: 64.20 >55% EF 2C: 64.20 >55% EF BiP: 64.00 >55% Mitral Valve MV Pk E: 0.77 MV PK A: 0.81 MV Decel Time: 272.00 E/A: 1.00 E'Lateral: 10.00 E'Medial: 6.64 E/E' Med: 11.60 E/E' Lat: 7.70 PHT: 80.00 MVA PHT: 2.75 Decel [place]: 2.83 Aortic Valve AoV Pk King: 1.25 AoV Mn King: 0.87 AoV VTI: 0.31 AoV Pk Grad: 6.00 Aov Mn Grad: 3.00 TAINA Cont.VTI: 2.64 LVOT LVOT Pk King: 1.04 LVOT Mn King: 0.73 LVOT VTI: 0.26 LVOT Pk Grad: 4.00 LVOT Mn Grad: 2.00 LVOT Diam: 2.00 LVOT Area: 3.14 Diastolic Function MV Pk E: 0.77 MV Pk A: 0.81 E/A: 1.00 E'Medial: 6.64 E/E' Med: 11.60 E' Laterial: 10.00 E/E' Lat: 7.70 Right Ventricle TAPSE (mm): 23.00 TVS' King: 10.00 Tricuspid Valve TR Pk King: 1.98 TR Pk Grad: 16.00 RA Press: 3.00 RVSP: 19.00 Great Vessels Aorta Ao Root-2D: 2.90 2.0-3.7 cm Ao Asc: 3.30 2.1-3.4 cm Pulmonary Valve PV Pk King: 1.17 Peak PV Grad: 5.00 Updated in Other Vendor System with Status of Final Jeff Presley MD electronically signed on 02/06/2025 11:55:25 AM with status of Final
--- OUTSIDE RECORDS SUMMARY | 2025-02-05 09:19 | XMS_ITS ---
Author Organization [facility] Address [address] [place] [phone] Care Team Providers Care Pneumatic Press Hand Name Role Phone Sidnye Carlton MD Primary Care Provider Mynor Jackman [phone] REASON FOR VISIT Needs 5/2 OV at 11:20 Problems Problem Type SNOMED Code ICD Code Onset Dates Problem Status W/U Status Risk Notes Problem Acute diarrhea (629107351) Acute diarrhea (R19.7) Active confirmed Problem Rectal bleeding (69227017) Rectal bleeding (K62.5) Active confirmed Encounters Encounter Location Date Provider Diagnosis [facility] [address] [facility] [address] [place] [phone] 03/09/2024 Mynor Alcaraz Rectal bleeding K62.5 Assessments Encounter Date Diagnosis (ICD Code) Assessment Notes Treatment Notes Treatment Clinical Notes Section Notes 03/09/2024 Rectal bleeding (ICD-10 - K62.5) Plan Of Treatment Pending Test Test Name Order Date CHEM 7 PROFILE 03/09/2024 LIVER PROFILE 03/09/2024 CRP 03/09/2024 CBC w DIFF 03/09/2024 SED RATE (ESR) 03/09/2024 Progress Notes * ANMOL GUZMAN:1960 (63 yo F)Acc No.[id number]:03/09/2024 Patient:?AMI GUZMAN :1960???Age:63 Y???Sex:Female Address:[address] [place], [place] [address] [address] Subjective: * Chief Complaints: * ???Needs 5/2 OV at 11:20 * Medical History:? * Surgical History:? * Hospitalization/Major Diagno stic Procedure:? * Medications:? Objective: Assessment: * Assessment: 1.?Rectal bleeding - K62.5? Plan: * Treatment: * Procedure Codes:? * true * Date:? Generated for Tarah boothe/Alec/eTbrianna on:?02/05/2025 09:19 AM EDT
--- OUTSIDE RECORDS SUMMARY | 2025-02-05 09:19 | XMS_ITS | Clinical Summary ---
Author Organization [facility] Address [address] [place] [address] Phone Care Team Providers Care Usability Specialist Name Role Phone Sidney Carlton MD Primary Care Provider [phone] Allergies No known active allergies Medications biotin [...] left breast. 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 Bustamante 2014; on Xanax BID with [...] age to complete this topic Care Teams Usability Specialist Relationship Specialty Start Date End Date Sidney Carlton MD [id number] [place] PCP - General Internal Medicine 03/06/23
--- OUTSIDE RECORDS SUMMARY | 2025-02-05 09:19 | XMS_ITS ---
Author Organization [facility] Address [address] [place] [address] Care Team Providers Care Cable Strander Name Role Phone Sidney Carlton MD Primary Care Provider Mynor Jackman Unavailable [phone] Allergies No Known Allergies REASON FOR VISIT rectal bleeding Medications Medication SIG (Take, Route, Frequency, Duration) Notes Start Date End Date Status Vitamin D3 50 MCG (1999) 1 tablet Ora lly Once a day Active Letrozole 2.5 MG Oral for 30 A ctive Losartan Potassium 50 MG Oral for 30 Active Pravastatin Sodium 20 MG Oral for 30 Active Social History Alcohol Screen Question Answer Notes Did you have a drink contain ing alcohol in the past year? Yes How often did you have a dri nk containing alcohol in the past year? 4 or more times a week (4 points) How many drinks did you have on a typical day when you were drinking in the past year? 1 or 2 drinks (0 point) Points 4 Interpretation Positive Section Notes: Nonsmoker; no sig alcohol Problems Problem Type SNOMED Code ICD Code Onset Dates Problem Status W/U Status Risk Notes Problem Gastrointestinal hemorrhage (56028081) Lower GI bleed (K92.2) Active confirmed Problem History of polyp of colon (situation) (115686290) Personal history of colonic polyps (Z86.010) Active confirmed Vital Signs Blood pressure systolic 00 mm Hg 03/26/20 24 Blood pressure diastolic 00 mm Hg 024 Height 64 in 03/26/2024 Weight 134 lbs 03/26/2024 BMI 23.00 kg/m2 03/26/2024 Encounters Encounter Location Date Provider Diagnosis [facility] [address] [place] [address] 03/26/2024 Mynor Alcaraz Lower GI bleed K92.2 ; Family history of colon cancer Z80.0 ; Rectal bleeding K62.5 and Personal history of colonic polyps Z86.010 Assessments Encounter Date Diagnosis (ICD Code) Assessment Notes Treatment Notes Treatment Clinical Notes Section Notes 03/26/2024 Lower GI bleed (ICD-10 - K92.2) Overall, Ami presently appears quite well. Her symptoms of the previous bleeding and abdominal discomfort in February have completely resolved and her abdominal exam is benign. Given her clinical history, most recent colonoscopy in 2021, and normal laboratories, I advised her that I suspect her episode of bleeding and abdominal discomfort in February may have represented an episode of possible ischemic colitis. The degree of bleeding appears to have been minimal given her normal hemoglobin. Given the associated abdominal discomfort and the nature of the bleeding, this does sound consistent with an episode of ischemic colitis as opposed to diverticular bleeding. We did review the diagnosis of possible ischemic colitis, although her only risk factor would be that of some hypertension. Given the fact that she never had any diarrhea nor vomiting would tend to go against a food poisoning as well. Her episode also does not sound consistent with any type of GI neoplasm given the clinical history and previous colonoscopy findings. I don't think this represented inflammatory bowel disease either. At this point, since things have resolved and she is doing well, I don't think a colonoscopy is required. However, I did advise her that if she has another episode then she should definitely call me and I would most likely recommend a colonoscopy for definitive evaluation. Again, we did review all of this in detail and I advised her that I don't think this represents any type of neoplasm or any other chronic condition at this time. If things remain well I will plan to see Ami in 2026 for her next colonoscopy. However, I did advise her to definitely call if she has any recurrent problems in this regard or any other questions with which I can be of assistance. Ami was very comfortable with this plan. Thank you again for allowing me to participate in Ami's care. I shall continue to keep you advised of her progress as needed. 03/26/2024 Family history of colon cancer (ICD-10 - Z80.0) Overall, Ami presently appears quite well. Her symptoms of the previous bleeding and abdominal discomfort in February have completely resolved and her abdominal exam is benign. Given her clinical history, most recent colonoscopy in 2021, and normal laboratories, I advised her that I suspect her episode of bleeding and abdominal discomfort in February may have represented an episode of possible ischemic colitis. The degree of bleeding appears to have been minimal given her normal hemoglobin. Given the associated abdominal discomfort and the nature of the bleeding, this does sound consistent with an episode of ischemic colitis as opposed to diverticular bleeding. We did review the diagnosis of possible ischemic colitis, although her only risk factor would be that of some hypertension. Given the fact that she never had any diarrhea nor vomiting would tend to go against a food poisoning as well. Her episode also does not sound consistent with any type of GI neoplasm given the clinical history and previous colonoscopy findings. I don't think this represented inflammatory bowel disease either. At this point, since things have resolved and she is doing well, I don't think a colonoscopy is required. However, I did advise her that if she has another episode then she should definitely call me and I would most likely recommend a colonoscopy for definitive evaluation. Again, we did review all of this in detail and I advised her that I don't think this represents any type of neoplasm or any other chronic condition at this time. If things remain well I will plan to see Ami in 2026 for her next colonoscopy. However, I did advise her to definitely call if she has any recurrent problems in this regard or any other questions with which I can be of assistance. Ami was very comfortable with this plan. Thank you again for allowing me to participate in Ami's care. I shall continue to keep you advised of her progress as needed. 03/26/2024 Rectal bleeding (ICD-10 - K62.5) Overall, Ami presently appears quite well. Her symptoms of the previous bleeding and abdominal discomfort in February have completely resolved and her abdominal exam is benign. Given her clinical history, most recent colonoscopy in 2021, and normal laboratories, I advised her that I suspect her episode of bleeding and abdominal discomfort in February may have represented an episode of possible ischemic colitis. The degree of bleeding appears to have been minimal given her normal hemoglobin. Given the associated abdominal discomfort and the nature of the bleeding, this does sound consistent with an episode of ischemic colitis as opposed to diverticular bleeding. We did review the diagnosis of possible ischemic colitis, although her only risk factor would be that of some hypertension. Given the fact that she never had any diarrhea nor vomiting would tend to go against a food poisoning as well. Her episode also does not sound consistent with any type of GI neoplasm given the clinical history and previous colonoscopy findings. I don't think this represented inflammatory bowel disease either. At this point, since things have resolved and she is doing well, I don't think a colonoscopy is required. However, I did advise her that if she has another episode then she should definitely call me and I would most likely recommend a colonoscopy for definitive evaluation. Again, we did review all of this in detail and I advised her that I don't think this represents any type of neoplasm or any other chronic condition at this time. If things remain well I will plan to see Ami in 2026 for her next colonoscopy. However, I did advise her to definitely call if she has any recurrent problems in this regard or any other questions with which I can be of assistance. Ami was very comfortable with this plan. Thank you again for allowing me to participate in Ami's care. I shall continue to keep you advised of her progress as needed. 03/26/2024 Personal history of colonic polyps (ICD-10 - Z86.010) Overall, Ami presently appears quite well. Her symptoms of the previous bleeding and abdominal discomfort in February have completely resolved and her abdominal exam is benign. Given her clinical history, most recent colonoscopy in 2021, and normal laboratories, I advised her that I suspect her episode of bleeding and abdominal discomfort in February may have represented an episode of possible ischemic colitis. The degree of bleeding appears to have been minimal given her normal hemoglobin. Given the associated abdominal discomfort and the nature of the bleeding, this does sound consistent with an episode of ischemic colitis as opposed to diverticular bleeding. We did review the diagnosis of possible ischemic colitis, although her only risk factor would be that of some hypertension. Given the fact that she never had any diarrhea nor vomiting would tend to go against a food poisoning as well. Her episode also does not sound consistent with any type of GI neoplasm given the clinical history and previous colonoscopy findings. I don't think this represented inflammatory bowel disease either. At this point, since things have resolved and she is doing well, I don't think a colonoscopy is required. However, I did advise her that if she has another episode then she should definitely call me and I would most likely recommend a colonoscopy for definitive evaluation. Again, we did review all of this in detail and I advised her that I don't think this represents any type of neoplasm or any other chronic condition at this time. If things remain well I will plan to see Ami in 2026 for her next colonoscopy. However, I did advise her to definitely call if she has any recurrent problems in this regard or any other questions with which I can be of assistance. Ami was very comfortable with this plan. Thank you again for allowing me to participate in Ami's care. I shall continue to keep you advised of her progress as needed. Plan Of Treatment Next Appt Details Follow Up: prn, Reason: Progress Notes * AMI GUZMAN ADOB:[birth year] (63 yo F)Acc No.[id number]:03/26/2024 Progress Notes Patient:?AMI GUZMAN Provider:?Mynor Alcaraz MD :1960???Age:63 Y???Sex:Female D ate:03/26/2024 Address:[address] [place] [address] [id number] Pcp:Sidney Carlton MD Subjective: * Chief Complaints: * ???Rectal bleeding * HPI: ???incontinence:? I saw Ami in the office today for evaluation of some recent rectal bleeding with associated abdominal cramps, her history of a tubular adenoma of the colon, and her family history of colon cancer. ?I last saw Ami in September of 2022, at which time she underwent a followup screening colonoscopy with removal of a small tubular adenoma. She does have a family history of her father and a maternal grandmother having had colon cancer. She had 2 negative colonoscopies prior to the procedure in 2021. ?She had been doing well up until March 09 when she developed the onset of sudden lower abdominal cramping and some rectal bleeding. She had eaten a salad with chicken the night before that and thought she was having a case of food poisoning. However, she never had any associated diarrhea, vomiting, or fever. ?The lower abdominal cramping persisted and she had some rectal bleeding over the course of that day which eventually resolved toward the end of that week. Again, she never had any diarrhea nor melena. Her main issue, along with abdominal cramps and bleeding was that of some constipation in which she really was not having any significant bowel movements. She denies having been on any antibiotics nor NSAIDs prior to nor at the time of the onset of her symptoms. ?Over the past 10 days or so she has had no further bleeding nor abdominal pain. She has been eating comfortably. She denies any nausea, vomiting, significant heartburn, nor dysphagia. She denies any fevers, jaundice, nor any significant weight loss. She does feel that things are just about back to normal although she does have an occasional sense of some constipation. ?Laboratories on March 20 revealed a normal CBC with a hemoglobin of 14.7, normal sedimentation rate, normal liver profile, normal chemistries and renal function, and a C-reactive protein of only 0.52. * ROS:?General/Constitutional:?Change in appetite?denies.?Chills?denies.?Fatigue?denies.?Ophthalmologic:?Comments?all negative.?ENT:?Comments?Per [facility].?Respiratory:?hemoptysis?denies.?Cough?admits.?Cardiovascular:?Chest pain?denies.?Orthopnea?denies.?Gastrointestinal:?Comments?See HPI for details.?Genitourinary:?Hematuria?denies.?Dysuria?denies.?Musculoskeletal:?Painful joints?denies.?Weakness?denies.?Skin:?Itching?denies.?Rash?denies.?Neurologic:?Headache?denies.?Seizures?denies.?Psychiatric:?Comments?all negative.? * Medical History:? * Surgical History:?Surgery fo r basal cell carcinoma on her face Uterine fibroid ablation Subglottic stenosis - [facility] Dr. Kevin Menezes - has steroid injection in trachea every 6 weeks--s/p dilation --complicated by a tear requiring several days of intubation in the ICU in 08/2021 Left Breast cancer with lumpectomy and XRT--at [facility] 2018 * Hospitalization/Major Diagno stic Procedure:?No Hospitalization History. * Family History:?Father: josiah dudley, 93, diagnosed with Colon cancer.?Mother: , yr 2018 .?Paternal Grand Mother: , diagnosed with Colon cancer.? The patients family history is notable for a maternal grandmother dying of colon cancer in her 50's and the patient's father being diagnosed with colon cancer in his 60's. * Social History:?Tobacco Use:?Tobacco Use/Smoking?Patient is a: nonsmoker.?Drugs/Alcohol:?Alcohol Screen?Did you have a drink containing alcohol in the past year??Yes,?How often did you have a drink containing alcohol in the past year??4 or more times a week (4 points),?How many drinks did you have on a typical day when you were drinking in the past year??1 or 2 drinks (0 point),?Points?4,?Interpretation?Positive.?Miscellaneous:?Marital status: . 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 ???Nonsmoker; no sig alcohol. * Medications:?TakingVitamin D 3 50 MCG (1999 UT) Capsule 1 tablet Orally Once a dayLetrozole 2.5 MG Tablet Oral Losartan Potassium 50 MG Tablet Oral Pravastatin Sodium 20 MG Tablet Oral Taking Vitamin D3 50 MCG (2000 UT) Capsule 1 tablet Orally Once a dayTaking Letrozole 2.5 MG Tablet Oral Taking Losartan Potassium 50 MG Tablet Oral Taking Pravastatin Sodium 20 MG Tablet Oral DiscontinuedTurmeric Multivitamin Adult - Tablet 1 tablet Orally Once a dayFamotidine 20 MG Tablet Oral Lisinopril 20 MG Tablet Orally Medication List reviewed and reconciled with the patientDiscontinued Turmeric Discontinued Multivitamin Adult - Tablet 1 tablet Orally Once a dayDiscontinued Famotidine 20 MG Tablet Oral Discontinued Lisinopril 20 MG Tablet Orally Medication List reviewed and reconciled with the patient * Allergies:?N.K.D.A.yes[Aller gies Verified] Objective: * Vitals:?Wt: 134 lbs, Ht: 64 in, BMI:23.00 Index, BP: 00/00 mm Hg. * Examination: ???General Examination: ?GENERAL APPEARANCE:?pleasant, well nourished, well developed, in no acute distress.?EYES:?sclera non-icteric.?ORAL CAVITY:?mucosa moist.?NECK/THYROID:?no cervical lymphadenopathy, neck supple.?SKIN:?nonjaundiced, no spider angiomata.?HEART:?S1, S2 normal.?LUNGS:?clear to auscultation bilaterally.?ABDOMEN:?normal bowel sounds, no guarding or rigidity, no guarding or rigidity, no masses palpable, soft, nontender, nondistended.?EXTREMITIES:?no edema.?NEUROLOGIC:?alert and oriented.? Assessment: * Assessment: 1.?Lower GI bleed - K92.2 (P rimary)?2.?Family history of colon cancer - Z80.0?3.?Rectal bleeding - K62.5?4.?Personal history of colonic polyps - Z86.010? Overall, Ami presently billy ears quite well. Her symptoms of the previous bleeding and abdominal discomfort in February have completely resolved and her abdominal exam is benign. Given her clinical history, most recent colonoscopy in 2021, and normal laboratories, I advised her that I suspect her episode of bleeding and abdominal discomfort in February may have represented an episode of possible ischemic colitis. The degree of bleeding appears to have been minimal given her normal hemoglobin. Given the associated abdominal discomfort and the nature of the bleeding, this does sound consistent with an episode of ischemic colitis as opposed to diverticular bleeding. We did review the diagnosis of possible ischemic colitis, although her only risk factor would be that of some hypertension. Given the fact that she never had any diarrhea nor vomiting would tend to go against a food poisoning as well. Her episode also does not sound consistent with any type of GI neoplasm given the clinical history and previous colonoscopy findings. I don't think this represented inflammatory bowel disease either. At this point, since things have resolved and she is doing well, I don't think a colonoscopy is required. However, I did advise her that if she has another episode then she should definitely call me and I would most likely recommend a colonoscopy for definitive evaluation. Again, we did review all of this in detail and I advised her that I don't think this represents any type of neoplasm or any other chronic condition at this time. If things remain well I will plan to see Ami in 2026 for her next colonoscopy. However, I did advise her to definitely call if she has any recurrent problems in this regard or any other questions with which I can be of assistance. Ami was very comfortable with this plan. Thank you again for allowing me to participate in Ami's care. I shall continue to keep you advised of her progress as needed. Plan: * Treatment: * Procedure Codes:?3017F COLOR ECTAL CA SCREEN DOC [id number] TOBACCO [id number]-[id number] BP SCR NOT PRFRM REC REASON NOS * Preventive Medicine:? ??Urinary Incontinence:?Urinary Incontinence?Assessment:?Present,?Plan of care documented:?Yes,?Type of plan of care:?Lifestyle interventions.? * Follow Up:?prn * * Sign off status: Completed true * Provider:?Mynor Alcaraz MD Date:? 024 Generated for Tarah boothe/Alec/eTrdsmitting on:?02/05/2025 09:18 AM EDT History and Physical Notes * HPI (History of Present Illness) Category Sub-Category Detail Notes Category Not es incontinence I saw Ami in the office today for evaluation of some recent rectal bleeding with associated abdominal cramps, her history of a tubular adenoma of the colon, and her family history of colon cancer. I last saw Ami in September of 2022, at which time she underwent a followup screening colonoscopy with removal of a small tubular adenoma. She does have a family history of her father and a maternal grandmother having had colon cancer. She had 2 negative colonoscopies prior to the procedure in 2021. She had been doing well up until March 09 when she developed the onset of sudden lower abdominal cramping and some rectal bleeding. She had eaten a salad with chicken the night before that and thought she was having a case of food poisoning. However, she never had any associated diarrhea, vomiting, or fever. The lower abdominal cramping persisted and she had some rectal bleeding over the course of that day which eventually resolved toward the end of that week. Again, she never had any diarrhea nor melena. Her main issue, along with abdominal cramps and bleeding was that of some constipation in which she really was not having any significant bowel movements. She denies having been on any antibiotics nor NSAIDs prior to nor at the time of the onset of her symptoms. Over the past 10 days or so she has had no further bleeding nor abdominal pain. She has been eating comfortably. She denies any nausea, vomiting, significant heartburn, nor dysphagia. She denies any fevers, jaundice, nor any significant weight loss. She does feel that things are just about back to normal although she does have an occasional sense of some constipation. Laboratories on March 20 revealed a normal CBC with a hemoglobin of 14.7, normal sedimentation rate, normal liver profile, normal chemistries and renal function, and a C-reactive protein of only 0.52. Examination Category Sub-Category Detail Notes Category Not es General Examination GENERAL APPEARANCE: pleasant , well nourished, well developed, in no acute distress HEAD: EYES: sclera non-icteric EARS: NOSE: THROAT: NECK/THYROID: no cervical lymphade nopathy, neck supple HEART: S1, S2 normal CHEST: LUNGS: clear to auscultatio n bilaterally ABDOMEN: normal bowel sounds, no guarding or rigidity, no guarding or rigidity, no masses palpable, soft, nontender, nondistended NEUROLOGIC: alert and oriented SKIN: nonjaundiced, no spi abad angiomata EXTREMITIES: no edema PERIPHERAL PULSES: BACK: BREASTS: MUSCULOSKELETAL: MALE GENITOURINARY: LYMPH NODES: RECTAL EXAM: FEMALE GENITOURINARY: ORAL CAVITY: mucosa moist
--- OUTSIDE RECORDS SUMMARY | 2025-02-05 09:19 | XMS_ITS | Patient Health Record ---
Author Organization [facility] Address [address] [place] [address] Care Team Providers Care Extract Wringer Name Role Phone Sidney Carlton MD Primary Care Provider Mynor Jackman Unavailable [phone] Allergies No Known Allergies Results Component Value Reference Range Notes Complete Blood Count Auto Di ff Reviewed date:03/20/2024 01:36:45 PM Interpretation: Performing Lab:[facility], [address] [place] [phone] Notes/Report: White Blood Count 8.6 4.8-10.8 X10*3/uL Red Blood Count 4.57 4.20-5.50 X10*6/uL Hemoglobin 14.7 12.0-16.0 g/dl Hematocrit 43.0 37.0-47.0 % Mean Corpuscular Volume 94.1 80.0-98.0 fL Mean Corpuscular Hemoglobin 32.2 27.0-33.0 pg Mean Corpuscular HGB Conc 34.2 31.0-35.0 g/dl Red Cell Distribution Width 11.9 11.0-16.0 % Platelet Count 311 160-400 X10*3/uL Mean Platelet Volume 9.7 9.4-12.3 fL Neutrophils Percent Auto 74.2 45-73 % Imm Gran Pct Auto 0.2 0.0-0.4 % Lymphocytes Percent Auto 17.6 20-40 % Monocytes Percent Auto 6.1 2-11 % Eosinophils Percent Auto 1.4 0-4 % Basophils Percent Auto 0.5 0-2 % NRBC Pct Auto 0.0 0.0-0.2 /100WBC Neutrophils Absolute Auto 6.4 2.0-8.3 x10*3/u L Imm Gran Abs Auto 0.02 0.00-0.03 X10*3/uL Lymphocytes Absolute Auto 1.5 1.2-4.9 X10*3/ uL Monocytes Absolute Auto 0.5 0.1-1.2 X10*3/uL Eosinophils Absolute Auto 0.1 0.0-0.4 X10*3/u L Basophils Absolute Auto 0.0 0.0-0.2 X10*3/uL NRBC Abs Auto 0.000 0.0-0.012 X10*3/uL Erythrocyte Sedimentation Ra te Reviewed date:03/20/2024 01:38:10 PM Interpretation: Performing Lab:[address] [address] Notes/Report: Erythrocyte Sedimentation Rate 5 0-20 MM/HR Patients with polycythemia and many hemoglobin abnormalities may have depressed sed rates whereas patients with anemia may have elevated sed rates. Liver Panel Reviewed date:03/20/2024 01:36:55 PM Interpretation: Performing Lab:[address] [address] Notes/Report: Bilirubin Total 0.4 0.0-1.0 mg/dL Bilirubin Direct 0.1 0.0-0.5 mg/dL Aspartate Amino Transferase 26 5-31 U/L Alanine Aminotransferase 30 0-31 U/L Total Protein 7.1 6.5-8.0 g/dL Albumin Level 4.3 3.5-5.0 g/dL Alkaline Phosphatase 90 39-117 U/L Basic Metabolic Panel Reviewed date:03/20/2024 01:37:30 PM Interpretation: Performing Lab:[address] [address] Notes/Report: Sodium 141 135-145 mmol/L Potassium 3.8 3.3-5.1 mmol/L Chloride 107 96-108 mmol/L Carbon Dioxide 29 22-29 mmol/L Anion Gap 9 12-20 Blood Urea Nitrogen 18 9-16 mg/dL Creatinine 0.57 0.5-1.4 mg/dL Estimated Glomerular Filt Rate > 60 NOTE: For -[place] individuals, multiply the result by 1.210. Chronic Kidney Disease: Estimated GFR < 60 mL/min/1.73m2 Severe Kidney Disease: Estimated GFR < 15 mL/min/1.73m2 Glucose Random 110 60-115 mg/dL Calcium 9.5 8.4-10.2 mg/dL C Reactive Protein Reviewed date:03/20/2024 01:38:02 PM Interpretation: Performing Lab:[facility], [address] [place] [phone] Notes/Report: C Reactive Protein 0.52 < or = 0.50 mg/dL Reason For Referral No Information Medications Medication SIG (Take, Route, Frequency, Duration) Notes Start Date End Date Status Vitamin D3 50 MCG (1999) 1 tablet Ora lly Once a day Active Losartan Potassium 50 MG Oral for 30 Active Letrozole 2.5 MG Oral for 30 A ctive Pravastatin Sodium 20 MG Oral for 30 Active Immunizations Vaccine Route Administration Date Status Comme nts Influenza Unknown 08/25/2022 Administered Social History Alcohol Screen Question Answer Notes [...] Positive Section Notes: Nonsmoker; no sig alcohol Nonsmoker; no sig alcohol Nonsmoker; no sig alcohol Problems Problem Type SNOMED Code ICD Code Onset Dates Problem Status W/U Status Risk Notes Problem Rectal bleeding (03657624) Rectal bleeding (K62.5) Active confirmed Problem 000911103 Encounter for screening for malignant neoplasm of colon (Z12.11) Active confirmed Problem History of polyp of colon (situation) (300705915) Personal history of colonic polyps (Z86.010) Active confirmed Problem Screening for malignant neoplasm of rectum (740110803) Encounter for screening for malignant neoplasm of rectum (Z12.12) Active confirmed Problem 44467820 Preprocedural examination (Z01.818) Active confirmed Problem 401602763 Family history o f colon cancer (Z80.0) Active confirmed Problem Gastrointestinal hemorrhage (85533237) Lower GI bleed (K92.2) Active confirmed Problem Diverticulosis of sigmoid colon (554838290) Diverticulosis of sigmoid colon (K57.30) Active confirmed Problem Acute diarrhea (412402447) Acute diarrhea (R19.7) Active confirmed Vital Signs Blood pressure diastolic 00 mm Hg 03/26/2024 Height 64 in 03/26/2024 Blood pressure systolic 00 mm Hg 03/26/2024 Weight 134 lbs 03/26/2024 BMI 23.00 kg/m2 03/26/2024 Encounters Encounter Location Date Provider Diagnosis [facility] [address] [place] [address] 03/26/2024 Mynor Alcaraz Lower GI bleed K92.2 ; Family history of colon cancer Z80.0 ; Rectal bleeding K62.5 and Personal history of colonic polyps Z86.010 [facility] [address] [place] [address] 03/09/2024 Mynor Alcaraz Rectal bleeding K62.5 Assessments Encounter Date Diagnosis (ICD Code) Assessment Notes Treatment Notes Treatment Clinical Notes Section Notes 03/26/2024 Family history of colon cancer (ICD-10 [...] with which I can be of assistance. mAi was very comfortable with this plan. Thank you again for allowing me to participate in Ami's care. I shall continue to keep you advised of her progress as needed. 03/26/2024 Lower GI bleed (ICD-10 - K92.2) [...] you advised of her progress as needed. 03/09/2024 Rectal bleeding (ICD-10 - K62.5) 03/26/2024 Rectal bleeding (ICD-10 - K62.5) Overall, [...] her progress as needed. Plan Of Treatment Pending Test Test Name Order Date CHEM 7 PROFILE 03/09/2024 LIVER PROFILE 03/09/2024 CRP 03/09/2024 CBC w DIFF 03/09/2024 SED RATE (ESR) 03/09/2024 Future Test Test Name Order Date COLONOSCOPY 11/30/2016 COLONOSCOPY 09/11/2022 Insurance Providers Payer Name Payer Address Payer Phone Subscriber Number Group Number Insured Name Patient Relationship to Insured Coverage Start Date Coverage End Date [facility] [address] [address] [place] [address] [id number] AMI GUZMAN Self - patient is the insured Medical (General) History Medical History History ICD Code Screening colonoscopy 9-24-2 008--no polyps--sigmoid diverticulosis and internal hemorrhoids Hypertension Denies [place],DM,CVA,Lung disease,renal dise ase Vocal cord dysfunction--caus ing trouble breathing--had been seeing Dr. 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 This was treated with dilation by an ENT physician--see below Uterine prolapse--seeing a Urogynecologi st Colonoscopy in 09/2022 with a small tubu lar adenoma and diverticulsosis Left-sided breast cancer 2018 as below Surgical History Surgery Date(Month/Year) Surgery for basal cell carcinoma on her face Uterine fibroid ablation Subglottic stenosis - [place] [facility] Dr. Kevin Menezes - has steroid injection in trachea every 6 weeks--s/p dilation --complicated by a tear requiring several days of intubation in the ICU in 08/2021 Left Breast cancer with lumpectomy and X RT--at [facility] 2018
== END ==
LOC: HO.CARD 08:56
PROVIDERS: PCP Internal Medicine; Visit Provider Internal Medicine
DX: I25.10 Atherosclerotic heart disease of native coronary artery without angina pectoris (principal); I10 Essential (primary) hypertension
CPT/HCPCS: 93306; Q9957

== ENCOUNTER → 2025-02-05 09:08 | Outpatient (BNV) | payer OTHER, SELFPAY | PROVIDERS: PCP Internal Medicine; Visit Provider Internal Medicine | DX: I25.10 Atherosclerotic heart disease of native coronary artery without angina pectoris (principal) | CPT/HCPCS: 93306 ==

== ENCOUNTER 2025-04-05 06:21 | Outpatient (REF) | payer MEDICARE, SELFPAY ==
--- OUTSIDE RECORDS SUMMARY | 2025-04-05 06:32 | XMS_ITS | Patient Health Record ---
Author Organization [facility] Address [address] [place] [address] Care Team Providers Care Oracle Hyperion Consultant Name Role Phone Sidney Carlton MD Primary Care Provider Mynor Jackman Unavailable [phone] Allergies No Known Allergies Reason For Referral No Information Medications Medication [...] W/U Status Risk Notes Problem Rectal bleeding (49574670) Rectal bleeding (K62.5) Active confirmed Problem 546440833 Encounter for screening for malignant neoplasm of colon (Z12.11) Active confirmed Problem Personal history of colonic polyps (Z86.010) Active confirmed Problem Screening for malignant neoplasm of rectum (216224470) Encounter for screening for malignant neoplasm of rectum (Z12.12) Active confirmed Problem 26355991 Preprocedural examination (Z01.818) Active confirmed Problem 851946030 Family history o f colon cancer (Z80.0) Active confirmed Problem Gastrointestinal hemorrhage (59261805) Lower GI bleed (K92.2) Active confirmed Problem Diverticulosis of sigmoid colon (976999239) Diverticulosis of sigmoid colon (K57.30) Active confirmed Problem Acute diarrhea (131703180) Acute diarrhea (R19.7) Active confirmed Plan Of Treatment Pending Test Test Name Order Date CHEM 7 PROFILE 03/09/2024 LIVER PROFILE 03/09/2024 CRP 03/09/2024 CBC w DIFF 03/09/2024 SED RATE (ESR) 03/09/2024 Future Test Test Name Order Date COLONOSCOPY 11/30/2016 COLONOSCOPY 09/11/2022 Insurance Providers Payer Name Payer Address Payer Phone Subscriber Number Group Number Insured Name Patient Relationship to Insured Coverage Start Date Coverage End Date [facility] [address] [address] [place] [address] [id number] AMI GUZMAN Self - patient is the insured Medical (General) History Medical History History ICD Code Screening colonoscopy 9-24-2 008--no polyps--sigmoid diverticulosis and internal hemorrhoids Hypertension Denies [place],DM,CVA,Lung disease,renal dise ase Vocal cord dysfunction--caus ing [...] face Uterine fibroid ablation Subglottic stenosis - [place] [facility] Dr. Kevin Menezes - has steroid injection in trachea every 6 weeks--s/p dilation --complicated by a tear requiring several days of intubation in the ICU in 08/2021 Left Breast cancer with lumpectomy and X RT--at [facility] 2018
--- OUTSIDE RECORDS SUMMARY | 2025-04-05 06:33 | XMS_ITS ---
Author Organization [facility] Address [address] [place] [address] Care Team Providers Care Canoe Maker Name Role Phone Sidney Carlton MD Primary Care Provider Mynor Jackman Unavailable [phone] Allergies No Known Allergies REASON FOR VISIT [...] W/U Status Risk Notes Problem Gastrointestinal hemorrhage (96628448) Lower GI bleed (K92.2) Active confirmed Problem Personal history of colonic polyps (Z86.010) Active confirmed Vital Signs Blood pressure systolic 00 mm Hg 03/26/20 24 Blood pressure diastolic 00 mm Hg 024 Height 64 in 03/26/2024 Weight 134 lbs 03/26/2024 BMI 23.00 kg/m2 03/26/2024 Encounters Encounter Location Date Provider Diagnosis [facility] [address] [place] [address] 03/26/2024 Mynor Alcaraz Lower GI bleed K92.2 [...] AMI GUZMAN ADOB:[birth year] (63 yo F)Acc No.[id number]:03/26/2024 Progress Notes Patient:?AMI GUZMAN Provider:?Mynor Alcaraz MD :1960???Age:63 Y???Sex:Female D ate:03/26/2024 Address:[address] [place], [place] [id number] Pcp:Sidney Carlton MD Subjective: * Chief Complaints: [...] face Uterine fibroid ablation Subglottic stenosis - [place] [facility] Dr. Kevin Menezes - has steroid injection in trachea every 6 weeks--s/p dilation --complicated by a tear requiring several days of intubation in the ICU in 08/2021 Left Breast cancer with lumpectomy and XRT--at [facility] 2018 * Hospitalization/Major Diagno stic Procedure:?No Hospitalization History. * Family History:?Father: josiah dudley, 93, diagnosed with Colon cancer.?Mother: , yr 2017 .?Paternal Grand Mother: , diagnosed with Colon [...] drinks (0 point),?Points?4,?Interpretation?Positive.?Miscellaneous:?Marital status: . 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 ???Nonsmoker; no sig alcohol. [...] Procedure Codes:?3017F COLOR ECTAL CA SCREEN DOC [id number] TOBACCO [id number] BP SCR NOT PRFRM REC REASON NOS * Preventive Medicine:? ??Urinary Incontinence:?Urinary Incontinence?Assessment:?Present,?Plan of care documented:?Yes,?Type of plan of care:?Lifestyle interventions.? * Follow Up:?prn * * Sign off status: Completed true * Provider:?Mynor Alcaraz MD Date:? 024 Generated for Tarah boothe/Alec/eTransmitting on:?04/05/2025 06:32 AM EDT History and Physical Notes * [...]
--- OUTSIDE RECORDS SUMMARY | 2025-04-05 06:33 | XMS_ITS | Clinical Summary ---
Author Organization [facility] Address [address] [place] [address] Phone Care Team Providers Care Coverstitch Elastic Attacher Name Role Phone Sidney Carlton MD Primary Care Provider [phone] Allergies No known active allergies Medications biotin [...] left breast. 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 Bustamante 2014; on Xanax BID with some relief; stridor/wheezing/dry cough with deep breathing/prolonged talking/exercise; unchanged symptoms Immunizations Immunization Administration Dates Next Due Influenza, Quadrivalent, Preservative [...] Comments Breast Cancer Screening 1960 Pneumococcal Vaccine: 50+ Years (1 of 2 - PCV) 1977 Colorectal Cancer Screening: Annual FOBT 2007 Colorectal Cancer Screening: Sigmoidoscopy 2007 Influenza Vaccine (Season Ended) 2025 09/06/2021, 09/02/2018 Colorectal Cancer Screening: Colonoscopy 10/24/2032 10/24/2022 Hepatitis B Vaccine Aged Out No longe r eligible based on patient's age to complete this topic Care Teams Coverstitch Elastic Attacher Relationship Specialty Start Date End Date Sidney Carlton MD [address] [place] PCP - General Internal Medicine 03/06/23
--- OUTSIDE RECORDS SUMMARY | 2025-04-05 06:33 | XMS_ITS ---
Author Organization [facility] Address [address] [place] [address] Care Team Providers Care Reporter Name Role Phone Sidney Carlton MD Primary Care Provider Mynor Jackman [phone] REASON FOR VISIT Needs 5/2 OV at 11:20 Problems Problem Type SNOMED Code ICD Code Onset Dates Problem Status W/U Status Risk Notes Problem Acute diarrhea (281235587) Acute diarrhea (R19.7) Active confirmed Problem Rectal bleeding (71317342) Rectal bleeding (K62.5) Active confirmed Encounters Encounter Location Date Provider Diagnosis [facility] [address] [place] [address] 03/09/2024 Mynor Alcaraz Rectal bleeding K62.5 Assessments Encounter Date Diagnosis (ICD Code) Assessment Notes Treatment Notes Treatment Clinical Notes Section Notes 03/09/2024 Rectal bleeding (ICD-10 - K62.5) Plan Of Treatment Pending Test Test Name Order Date CHEM 7 PROFILE 03/09/2024 LIVER PROFILE 03/09/2024 CRP 03/09/2024 CBC w DIFF 03/09/2024 SED RATE (ESR) 03/09/2024 Progress Notes * ANMOL GUZMAN:1960 (63 yo F)Acc No.[id number]:03/09/2024 Patient:?AMI GUZMAN :1960???Age:63 Y???Sex:Female Address:[address] [place], [place] [address] [address] Subjective: * Chief Complaints: * ???Needs 5/2 OV at 11:20 * Medical History:? * Surgical History:? * Hospitalization/Major Diagno stic Procedure:? * Medications:? Objective: Assessment: * Assessment: 1.?Rectal bleeding - K62.5? Plan: * Treatment: * Procedure Codes:? * true * Date:? Generated for Tarah boothe/Alec/Carlos on:?04/05/2025 06:32 AM EDT
[2025-04-05 07:46] LABS: Alanine Aminotransferase 27 U/L (0-31); Albumin Level 4.4 g/dL (3.5-5.0); Aspartate Amino Transferase 24 U/L (5-31); Bilirubin Direct 0.1 mg/dL (0.0-0.5); Bilirubin Total 0.4 mg/dL (0.0-1.0); Cholesterol 186 mg/dL (<200); HDL Cholesterol 58 mg/dL (>40); LDL Cholesterol Calculated 71 mg/dL (<100); Total Protein 6.9 g/dL (6.5-8.0); Triglycerides 287 mg/dL (<150)
[2025-04-05 08:00] LABS: Alkaline Phosphatase 79 U/L (39-117)
== END 2025-04-05 06:22 | disposition home or self-care (01) ==
LOC: HO.LAB 06:21
PROVIDERS: Visit Provider Internal Medicine
DX: E78.5 Hyperlipidemia, unspecified (principal); I25.10 Atherosclerotic heart disease of native coronary artery without angina pectoris
CPT/HCPCS: 36415; 80061; 80076

== ENCOUNTER 2025-04-08 09:44 | Outpatient (AMB) | payer OTHER, SELFPAY ==
--- OUTSIDE RECORDS SUMMARY | 2025-04-08 10:35 | XMS_ITS | Clinical Summary ---
Author Organization [facility] Address [address] [place] [address] Phone Care Team Providers Care Flight Deck Officer Name Role Phone Sidney Carlton MD Primary Care Provider [phone] Allergies No known active allergies Medications biotin [...] left breast. 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; on Xanax BID with [...] age to complete this topic Care Teams Flight Deck Officer Relationship Specialty Start Date End Date Sidney Carlton MD [address] [place] PCP - General Internal Medicine 03/06/23
--- OUTSIDE RECORDS SUMMARY | 2025-04-08 10:35 | XMS_ITS ---
Author Organization [facility] Address [address] [place] [address] Care Team Providers Care Development Lead Name Role Phone Sidney Carlton MD Primary Care Provider Mynor Jackman Unavailable [phone] Allergies No Known Allergies REASON FOR VISIT [...] Problem Status W/U Status Risk Notes Problem Lower GI bleed (K92.2) Active confirmed Problem History of polyp of colon (situation) (837432535) Personal history of colonic polyps (Z86.010) Active confirmed Vital Signs Blood pressure systolic 00 mm Hg 03/26/20 24 Blood pressure diastolic 00 mm Hg 024 Height 64 in 03/26/2024 Weight 134 lbs 03/26/2024 BMI 23.00 kg/m2 03/26/2024 Encounters Encounter Location Date Provider Diagnosis [facility] [address] [place] [address] 03/26/2024 Mynor Alcaraz Lower GI bleed K92.2 [...] AMI GUZMAN ADOB:[birth year] (63 yo F)Acc No.[id number]:03/26/2024 Progress Notes Patient:?AMI GUZMAN Provider:?Mynor Alcaraz MD :1960???Age:63 Y???Sex:Female D ate:03/26/2024 Address:[address] [place] [address] [id number] Pcp:Sidney Carlton MD Subjective: * Chief Complaints: [...] face Uterine fibroid ablation Subglottic stenosis - [place] [facility] Dr. Kevin Menezes - has steroid injection in trachea every 6 weeks--s/p dilation --complicated by a tear requiring several days of intubation in the ICU in 08/2021 Left Breast cancer with lumpectomy and XRT--at [facility] 2018 * Hospitalization/Major Diagno stic Procedure:?No Hospitalization [...] drinks (0 point),?Points?4,?Interpretation?Positive.?Miscellaneous:?Marital status: . 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 ???Nonsmoker; no sig alcohol. * Medications:?TakingVitamin D 3 50 MCG (2000 UT) Capsule 1 tablet [...] Procedure Codes:?3017F COLOR ECTAL CA SCREEN DOC [id number] TOBACCO [id number] BP SCR NOT PRFRM REC REASON NOS * Preventive Medicine:? ??Urinary Incontinence:?Urinary Incontinence?Assessment:?Present,?Plan of care documented:?Yes,?Type of plan of care:?Lifestyle interventions.? * Follow Up:?prn * * Sign off status: Completed true * Provider:?Mynor Alcaraz MD Date:? 024 Generated for Tarah boothe/Alec/eTransmitting on:?04/08/2025 10:35 AM EDT History and Physical Notes * [...]
--- OUTSIDE RECORDS SUMMARY | 2025-04-08 10:35 | XMS_ITS | Patient Health Record ---
Author Organization [facility] Address [address] [place] [address] Care Team Providers Care Grocery Specialist Name Role Phone Sidney Carlton MD Primary Care Provider Mynor Jackman Unavailable [phone] Allergies No Known Allergies Reason For Referral [...] W/U Status Risk Notes Problem Rectal bleeding (46083423) Rectal bleeding (K62.5) Active confirmed Problem 601940717 Encounter for screening for malignant neoplasm of colon (Z12.11) Active confirmed Problem History of polyp of colon (situation) (324187614) Personal history of colonic polyps (Z86.010) Active confirmed Problem Screening for malignant neoplasm of rectum (962406924) Encounter for screening for malignant neoplasm of rectum (Z12.12) Active confirmed Problem 32758876 Preprocedural examination (Z01.818) Active confirmed Problem 030902432 Family history o f colon cancer (Z80.0) Active confirmed Problem Lower GI bleed (K92.2) Active confirmed Problem Diverticulosis of sigmoid colon (251382187) Diverticulosis of sigmoid colon (K57.30) Active confirmed Problem Acute diarrhea (354091604) Acute diarrhea (R19.7) Active confirmed Plan Of [...] Insured Coverage Start Date Coverage End Date [facility] [address] [place] [address] [id number] AMI GUZMAN Self - patient is the insured Medical (General) History Medical History History ICD Code Screening colonoscopy 9-24-2 008--no polyps--sigmoid diverticulosis and internal hemorrhoids Hypertension Denies [place],DM,CVA,Lung disease,renal dise ase Vocal cord dysfunction--caus ing [...] face Uterine fibroid ablation Subglottic stenosis - [place] [facility] Dr. Kevin Menezes - has steroid injection in trachea every 6 weeks--s/p dilation --complicated by a tear requiring several days of intubation in the ICU in 08/2021 Left Breast cancer with lumpectomy and X RT--at [facility] 2018
--- OUTSIDE RECORDS SUMMARY | 2025-04-08 10:36 | XMS_ITS ---
Author Organization [facility] Address [address] [place] [address] Care Team Providers Care Machine Crater Name Role Phone Sidney Carlton MD Primary Care Provider Mynor Jackman [phone] REASON FOR VISIT Needs 5/2 OV at 11:20 Problems Problem Type SNOMED Code ICD Code Onset Dates Problem Status W/U Status Risk Notes Problem Acute diarrhea (960564162) Acute diarrhea (R19.7) Active confirmed Problem Rectal bleeding (23486862) Rectal bleeding (K62.5) Active confirmed Encounters Encounter Location Date Provider Diagnosis [facility] [address] [facility] [address] [place] [address] 03/09/2024 Mynor Alcaraz Rectal bleeding K62.5 Assessments Encounter Date Diagnosis (ICD Code) Assessment Notes Treatment Notes Treatment Clinical Notes Section Notes 03/09/2024 Rectal bleeding (ICD-10 - K62.5) Plan Of Treatment Pending Test Test Name Order Date CHEM 7 PROFILE 03/09/2024 LIVER PROFILE 03/09/2024 CRP 03/09/2024 CBC w DIFF 03/09/2024 SED RATE (ESR) 03/09/2024 Progress Notes * ANMOL GUZMAN:1960 (63 yo F)Acc No.[id number]:03/09/2024 Patient:?AMI GUZMAN :1960???Age:63 Y???Sex:Female Address:[address] [place], [place] [address] [address] Subjective: * Chief Complaints: * ???Needs 5/2 OV at 11:20 * Medical History:? * Surgical History:? * Hospitalization/Major Diagno stic Procedure:? * Medications:? Objective: Assessment: * Assessment: 1.?Rectal bleeding - K62.5? Plan: * Treatment: * Procedure Codes:? * true * Date:? Generated for Tarah boothe/Alec/eTrdsmmaegan on:?04/08/2025 10:35 AM EDT
--- NOTE | 2025-04-08 10:42 | MHC.OFFVIS ---
Vital Signs 04/08/25 10:43 Height 5 ft 4 in Weight 136 lb 3.931 oz BMI 23.4 BP 130/70 Blood Pressure Location Lt brachial Position Sitting Pulse 73 Pulse Source Pulse Oximeter Intake Visit Reasons: 3 mth f/up/ echo Hospice Entrance Attendant Required: No Accompanied by: Self / Same As Patient Allergies No Known Allergies [No Known Allergies*] Allergy (Mild, Unverified 08/11/20 15:38) NOT APPLICABLE Medication List - Last Reconciled 04/08/25 by Jeff Presley MD cholecalciferol (vitamin D3) 25 mcg PO DAILY letrozole 2.5 mg PO DAILY losartan 50 mg PO BID rosuvastatin (Crestor) 20 mg PO DAILY HPI Comments Details: Corrie returns for follow-up. Recently seen in consultation regarding positive calcium score on CT scan. Patient herself does not have any known cardiac issues. No history of any coronary disease or myocardial infarction or cardiomyopathy or in fact any other cardiac concerns. She has had hypertension since her 40s. She is on medication for the same but still not well controlled. She also has hyperlipidemia. She has lot of side effects from statins like memory issues and hence does not like taking them. Within limits of her activity, she does not have any cardiac complaints like angina. Extremely active with no limitations. History of breast cancer and she has had lumpectomy, radiation. 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 That was causing her some shortness of breath but now it is resolved. During last visit, she was put on amlodipine for blood pressure but she is not taking that. For statins, Crestor was tried but she is planning to stop that because of brain fog type symptoms. [facility] Medical History (Updated 01/21/25 @ 11:23 by Jeff Presley MD) Mixed hyperlipidemia Difficulty breathing Cancer of left breast Injury of trachea Basal cell carcinoma Gallstones Uterine prolapse Subglottic stenosis Vocal cord dysfunction HTN (hypertension) Surgical History S/P lumpectomy, left breast H/O colonoscopy Family History Mother CHF (congestive heart failure) HTN (hypertension) Father History of cardiac cath HTN (hypertension) Hypercholesteremia Social History Alcohol intake: current Alcohol intake frequency: holidays/special occasions only Patient Tobacco Use Status: Never used Tobacco Review of Systems Const Denies chills, Denies fatigue, Denies fever(s), Denies frequent falls, Denies weakness, Denies weight gain and Denies weight loss ENT Denies dizziness Card Denies chest pain, Denies leg edema, Denies lightheadedness, Denies palpitations, Denies dyspnea and Denies dyspnea on exertion Resp Denies cough, Denies dyspnea and Denies dyspnea on exertion GI Denies hematochezia Musc Denies abnormal gait, Denies muscle weakness, Denies numbness, Denies radiating pain into limb and Denies tingling Neuro Denies abnormal gait, Denies dizziness, Denies frequent falls, Denies numbness, Denies tingling and Denies weakness Endo Denies fatigue and Denies palpitations Physical Exam Vital Signs: Last Vital Signs Pulse 73 04/08/25 10:43 BP 130/70 04/08/25 10:43 BMI result Body Mass Index 23.4 Const General: comfortable and no acute distress Orientation/consciousness: patient oriented x3 HEENT Other: Unremarkable Head: Yes normal to inspection Neck Neck: Yes normal visual inspection Chest Chest palpation & inspection: normal inspection of the chest Resp Auscultation: clear to auscultation bilaterally Cardio Palpation: normal PMI Heart sounds: S1 normal heart sound present, S2 normal heart sound present, no gallops, no murmurs and no rubs GI Palpation (GI): Soft to palpation Back/Spine/Pelvis Other: unremarkable Skin General skin exam: no rashes or lesions noted Neuro General: patient oriented x3 Extrem General: Yes normal to inspection Psych Mental Status: mental status grossly normal Assessment & Plan Assessment & Plan (1) Atherosclerotic cardiovascular disease: Code(s): I25.10 - Atherosclerotic heart disease of [place] coronary artery without angina pectoris Category: Medical (2) HTN (hypertension): Code(s): I10 - Essential (primary) hypertension Category: Medical (3) Mixed hyperlipidemia: Code(s): E78.2 - Mixed hyperlipidemia Category: Medical Plan Calcium scoring CT scan-total calcium score 17. LAD 11; RCA 6. Overall, low-grade atherosclerosis and risk factors of hypertension/dyslipidemia. With regard to hypertension, she is only on losartan. We added amlodipine but she states that she would rather not take it and just monitor home blood pressures. Advised her to closely monitor them and if it is consistently > 140/90 mm Hg, then we will need to add something. She is aware. With regard to the dyslipidemia, she has got elevated LDL as well as triglycerides. Has tried different statins including atorvastatin, pravastatin, rosuvastatin and has brain fog type symptoms. Hence she does not want to take anymore statins. Other options would be Zetia or injectables like Repatha. For the time being, she states she does not want to take any medications at all. She wants to just recheck lipids in 3 months or so. Discussion Notes I discussed with the patient the association between her memory issues and statin use. I informed her of the alternative options for hyperlipidemia management, including ezetimibe, which affects gastrointestinal cholesterol absorption, and injectable therapies that don't exhibit the cognitive side effects of statins. I acknowledged her decision to temporarily discontinue statins, emphasizing careful monitoring of her cardiovascular risk factors, including high triglycerides and essential hypertension. We agreed on follow-up lab work in three months to reassess her lipid profile and consider non-statin interventions depending on those results. I provided anticipatory guidance regarding potential increases in cholesterol and triglycerides and the need for lifestyle modifications. Consent was obtained for the proposed plan, and she expressed understanding and agreement. Patient was informed and verbally consented to the use of an ambient scribe for clinic note documentation during this visit. Orders: Orders Lipid Panel 3 Months E78.2 - Mixed hyperlipidemia Medications: Discontinued rosuvastatin (Crestor) Discontinued Reason: Doctor's Order 20 mg PO DAILY 90 tabs 1RF I25.10 - Atherosclerotic heart disease of [place] coronary artery without angina pectoris Patient Instructions: - Monitor your blood pressure at home and keep a log. - Ensure a follow-up lab for cholesterol and triglycerides in three months. - Consider dietary and lifestyle changes to manage cholesterol. - Contact healthcare provider if questions or symptoms worsen. Coding Level of Care Code Est Pt Level 3 (99851) Diagnoses Atherosclerotic cardiovascular disease I25.10 HTN (hypertension) I10 Mixed hyperlipidemia E78.2
[2025-04-08 10:43] VITALS: BP 130/70; PULSE 73; BMI 23.4
== END 2025-04-08 11:04 | disposition home or self-care (01) ==
LOC: HO.HCS 09:44
PROVIDERS: PCP Internal Medicine; Visit Provider Internal Medicine
DX: I25.10 Atherosclerotic heart disease of native coronary artery without angina pectoris (principal); I10 Essential (primary) hypertension; E78.2 Mixed hyperlipidemia
CPT/HCPCS: 99213